=== PATIENT | male | born 1945 | race Caucasian/White ===

== ENCOUNTER → 2018-03-26 12:44 | Outpatient (CLI) | payer MEDICARE, OTHER, SELFPAY ==
--- NOTE | 2018-03-26 12:48 | ECHOD_ITS ---
Reason For Study: Murmur Procedure This was a 2D Doppler, Color Flow transthoracic echocardiogram. Exam performed in department. Left Ventricle Moderate concentric left ventricular hypertrophy. The estimated ejection fraction is 65 %. Normal diastology for age. No regional wall motion abnormalities noted. Right Ventricle Normal size and thickness. Normal systolic function. Atria Normal left atrium. Normal right atrium. Normal atrial septum. Mitral Valve The mitral valve is structurally normal. No prolapse or stenosis seen. Tricuspid Valve Normal tricuspid valve. Trivial tricuspid valve insufficiency. Right ventricular systolic pressure estimated to be 30 mmHg. Aortic Valve Trisinus/trileaflet aortic valve. Moderate focal aortic valve thickening. Mild focal aortic valve calcification. Mild restriction of the aortic valve. Possible fixed left coronary cusp. Mild aortic stenosis. Peak aortic valve gradient 28 mmHg. Mean aortic valve gradient 14 mmHg. Calculated aortic valve area (continuity equation) is 1.2 cm2. Pulmonic Valve Normal pulmonic valve. Great Vessels Normal aortic root. Normal arch. Normal inferior vena cava. Inferior vena cava collapse with sniff. Pericardium/Pleural No pericardial effusion. MMode/2D Measurements & Calculations LVIDd: 4.2 cm IVSd: 1.7 cm LVOT diam: 2.0 cm LVIDs: 2.6 cm LVPWd: 1.2 cm LVOT area: 3.3 cm2 RVDd: 4.0 cm FS: 38.2 % Ao root diam: 3.4 cm LAV(MOD-sp4): 43.5 ml Aortic Valve Planimetry: 1.4 cm2 ACS: 1.6 cm LA dimension: 4.3 cm LA A4 area: 16.4 cm2 RA A4 area: 14.8 cm2 Time Measurements MV dec time: 0.25 sec Doppler Measurements & Calculations MV E max jonatan: 60.8 cm/sec Lat Peak E' Jonatan: 13.2 cm/sec Med Peak E' Jonatan: 10.6 cm/sec MV A max jonatan: 72.1 cm/sec E/E' lat: 4.6 E/E' med: 5.7 MV E/A: 0.84 MV V2 max: 79.9 cm/sec MV P1/2t max jonatan: 79.0 cm/sec Ao V2 max: 263.6 cm/sec MV max P.6 mmHg MV P1/2t: 91.5 msec Ao max P.8 mmHg MV V2 mean: 40.6 cm/sec MV dec slope: 252.7 cm/sec2 Ao V2 mean: 171.2 cm/sec MV mean P.79 mmHg MVA(P1/2t): 2.4 cm2 Ao mean P.9 mmHg MV V2 VTI: 28.9 cm Ao V2 VTI: 51.7 cm MVA(VTI): 2.6 cm2 JIAN(I,D): 1.4 cm2 JIAN(V,D): 1.2 cm2 LV V1 max: 98.0 cm/sec SV(LVOT): 74.9 ml PA V2 max: 175.8 cm/sec LV V1 max P.8 mmHg LV V1 mean P.9 mmHg LV V1 mean: 62.8 cm/sec LV V1 VTI: 22.9 cm Interpretation Summary Moderate concentric left ventricular hypertrophy. The estimated ejection fraction is 65 %. Normal diastology for age. Trivial tricuspid valve insufficiency. Right ventricular systolic pressure estimated to be 30 mmHg. Possible fixed left coronary cusp. Mild aortic stenosis. There is no comparison study available. Ordering Physician: Erick Pittman Referring Physician: Erick Pittman Performed By: Jimmie Fitzgerald RCS
== END ==
PROVIDERS: Family Provider Family Medicine; PCP Family Medicine; Referring Provider Family Medicine; Visit Provider Family Medicine
DX: R01.1 Cardiac murmur, unspecified (principal)
CPT/HCPCS: 93306

== ENCOUNTER → 2022-09-10 | Outpatient (CLI) | payer MEDICARE, OTHER, SELFPAY ==
--- NOTE | 2022-09-10 09:26 | US_ITS ---
STUDY: ABDOMINAL ULTRASOUND REASON FOR EXAM: Male, 77 years old. Abdominal pain, nausea TECHNIQUE: Transabdominal ultrasound was performed with real-time and static van scale imaging. TECHNICAL QUALITY: Limited. Examination limited by bowel gas. COMPARISON: None. FINDINGS: Liver: The liver measures 15.4 cm. There is normal echogenicity of the liver. The bile ducts are within normal limits. There is hepatic color flow. The direction of portal flow is hepatopetal. There is no demonstrated mass lesion, there is a simple 1.3 cm cyst in the right lobe. Portal vein measurement: Gallbladder: Normal distended gallbladder. The gallbladder wall measures 2.2 mm. There is a negative sonographic Castillo''s sign. There is no pericholecystic fluid. There are no gallstones. Common Bile Duct (C.B.D.): The common bile duct measures 4.3 mm. Pancreas: Normal size of the head, body and tail of the pancreas. There is normal echogenicity of the pancreas. There is no demonstrated pancreatic mass or cyst. Spleen: Normal size of the spleen. The spleen measures 11 cm. Right Kidney: Normal size of the right kidney. The right kidney measures 10.5 x 5.1 x 4.8 cm. Normal renal cortex. The right cortex measures 1.7 cm. There is a simple 1.8 cm cyst. There is no right hydronephrosis, there is a nonobstructing 5 mm stone. Left Kidney: Normal size of the left kidney. The left kidney measures 11.3 x 5 x 5.8 cm. Normal renal cortex. The left cortex measures 1.7 cm. There is no demonstrated renal mass or cyst. There is no left hydronephrosis. Aorta: Tapers normally I.V.C.: The IVC is patent. There is no ascites. US/Abdomen Complete IMPRESSION: No suspicious sonographic findings, simple hepatic and right renal cysts, no specific follow-up needed. Nonobstructing right nephrolithiasis Electronically Signed: Juancho Conteh MD at 12:50 EDT ,
== END | disposition home or self-care (01) ==
LOC: US 09:26
PROVIDERS: PCP Nurse Practitioner Family; Referring Provider Internal Medicine Medical Oncology; Visit Provider Internal Medicine Medical Oncology
DX: D72.821 Monocytosis (symptomatic) (principal)
CPT/HCPCS: 76700

== ENCOUNTER 2022-10-21 14:17 | Emergency (ER) | payer MEDICARE, OTHER, SELFPAY ==
[2022-10-21 14:20] VITALS: BP 144/83; PULSE 114; RESP 19; TEMP 36.7; O2SAT 98; BMI 29.4
--- NOTE | 2022-10-21 14:28 | EKG12_ITS ---
Test Reason : CP Blood Pressure : / mmHG Vent. Rate : 118 BPM Atrial Rate : 300 BPM P-R Int : 000 ms QRS Dur : 110 ms QT Int : 328 ms P-R-T Axes : 256 -22 085 degrees QTc Int : 459 ms Atrial flutter with variable A-V block Minimal voltage criteria for LVH, may be normal variant ( R in aVL ) Nonspecific ST and T wave abnormality Abnormal ECG Confirmed by CACHORRO BYRD, JENNIFER ([id number]), senior technical editor LAURA HARLEY ([id number]) on 10/24/2022 9:18:14 AM Referred By: DARON Confirmed By:JENNIFER IVORY MD
--- NOTE | 2022-10-21 14:38 | RAD_ITS ---
EXAM: XR CHEST, 1 VIEW CLINICAL INDICATION: dyspnea TECHNIQUE: Frontal view of the chest. This report was created using [employer]ITT[employer] report generation technology. COMPARISON: None. FINDINGS: LUNGS AND PLEURAL SPACES: Unremarkable. No consolidation or edema. No pneumothorax. No effusion. HEART: Unremarkable. Cardiac silhouette not enlarged. MEDIASTINUM: Central airways and mediastinal contour are unremarkable. BONES/JOINTS: Unremarkable. SOFT TISSUES: Unremarkable. RAD/Chest 1 View (Portable) IMPRESSION: No radiographic evidence of acute cardiopulmonary disease. Electronically Signed: Liam Carter MD at 15:09 EDT ,
--- NOTE | 2022-10-21 14:48 | EX.ED.DYSGE1 ---
HPI History of Present Illness Chief Complaint: Palpitations Detail of Chief Complaint: Sent from nurse practitioner's office for atrial flutter Informant: patient and PCP Onset/Context/Timing Onset: Weeks (Onset 2 to 3 weeks ago) Context: Sudden Onset Timing: Continuous Quality: Palpitations and rapid heartbeat Location: Chest Current Severity: Mild Maximum Severity: Moderate Worsened by: Dyspnea with exertion, only Relieved by: Nothing Associated Symptoms Associated Symptoms: No other symptoms Narrative Narrative: Patient is a 76-year-old male with history of osteoarthritis, hypercholesterolemia, cardiac murmur, hypothyroidism, hyperlipidemia and hypertension who presents from nurse practitioner's office because of rapid heartbeat. Monitor that accompanied patient reveals atrial flutter with variable conduction. Rate is 120. Patient denies history of medical fever. He states he was diagnosed with murmur proxy 5 years ago. He states its been a while since he had an echo. He does not see a game developer. He had his TSH level assessed in August and states it was normal. Patient does report dyspnea with significant exertion. He denies chest discomfort with exertion. He denies orthopnea or PND. He denies history of PE or DVT. He has not noticed any swelling in his legs. He states that nurse practitioner Zenon check stated he had some swelling of his feet. He denies black or maroon-colored stool. He denies fever, chills night sweats. Denies weight gain or weight loss. He denies headache, visual, ocular auditory symptoms. Patient states onset of the palpitations rapid heart rate was approximately 2-3 3 weeks ago. Review of med list indicates he is not on an anticoagulant. Prior similar symptoms: No Recent Illness/Hospitalization: No [facility] Medical History (Updated 10/21/22 @ 16:[address] Jarad Manriquez MD) Enlarged prostate HTN (hypertension) Hypothyroid Sleep disorder Home Medications finasteride 5 mg tablet 5 mg PO DAILY 12/12/21 [History Last Taken Unknown] glucosamine-chondroitin 250 mg-200 mg tablet (Osteo Bi-Flex) 2 tab PO QPC 12/12/21 [History Last Taken Unknown] irbesartan 150 mg tablet 150 mg PO DAILY 12/12/21 [History Last Taken Unknown] levothyroxine 50 mcg capsule 50 mcg PO DAILY 12/12/21 [History Last Taken Unknown] omega-3 fatty acids 1,000 mg capsule 1,000 mg PO DAILY 12/12/21 [History Last Taken Unknown] tumeric 100 mg-domiinc 150 mg-olive 50 mg-oreg 150 mg-caprylate capsule 2 cap PO DAILY 12/12/21 [History Last Taken Unknown] apixaban 5 mg tablet (Eliquis) 5 mg PO BID #60 tabs 10/21/22 [Rx Last Taken Unknown] metoprolol succinate 25 mg tablet,extended release 24 hr 25 mg PO BID #60 tabs 10/21/22 [Rx Last Taken Unknown] Allergy/AdvReac Type Severity Reaction Status Date / Time No Known Allergies Allergy Verified 10/21/22 14:20 Family History Sister Cancer Hypertension Social History (Updated 10/21/22 @ 14:[address] Jarad Manriquez MD) household members: spouse Smoking Status: Former smoker how long ago did patient quit smokin yrs ROS ROS ED Constitutional Constitutional ED: Denies chills, fever(s), subjective, sweats or weight loss Eyes Eyes: Denies blurry vision, change in vision or diplopia ENT ENT ED: Denies ear pain, rhinorrhea or sore throat Cardiovascular Cardiovascular: Reports palpitations and racing heartbeat; Denies chest pain, orthopnea or paroxysmal nocturnal dyspnea Respiratory/Chest Respiratory/Chest: Reports dyspnea on exertion; Denies cough, dyspnea, orthopnea or paroxysmal nocturnal dyspnea Gastrointestinal Gastrointestinal: Denies abdominal pain, diarrhea, melena, nausea or vomiting Genitourinary Genitourinary ED: Denies dysuria, hematuria or urinary frequency Musculoskeletal Musculoskeletal: Denies arthralgias, back pain, myalgias or neck pain Integumentary Denies rash Neurologic Neurologic: Denies headache(s), paresthesias or weakness Psychiatric Psychiatric: Denies anxiety Hematologic/Lymphatic Hematologic/Lymphatic: Reports systems reviewed and no addt'l complaints, except as documented EXAM Physical Exam Const Vital Signs: 10/21/22 14:20 10/21/22 14:57 10/21/22 15:29 Temperature 98.0 F Temperature Source Oral Pulse Rate 114 H 100 Respiratory Rate 19 H 17 Respiratory Effort Normal Non-Labored Blood Pressure 144/83 H Blood Pressure Mean 103 Pulse Ox 98 96 Oxygen Delivery Method Room Air 10/21/22 15:52 Temperature Temperature Source Pulse Rate 128 H Respiratory Rate 14 Respiratory Effort Blood Pressure 107/79 Blood Pressure Mean 88 Pulse Ox 95 Oxygen Delivery Method Room Air Positive well nourished and well developed General Appearance ED: well developed and NAD; Negative for cyanotic, diaphoretic or pallor HEENT Reports moist mucous membranes HEENT Narrative: Head is atraumatic normocephalic. Ears normal. Nares patent. Posterior pharynx is normal. Eyes PERRL and EOMs intact bilaterally General Eye ED: Negative for pale conjunctiva or scleral icterus Neck no lymphadenopathy, supple and no JVD Chest Wall inspection of chest normal and palpation of chest normal Resp normal respiratory effort and clear to auscultation bilaterally Cardio S1 normal heart sound and S2 normal heart sound; Negative for no murmurs Rhythm: abnormal rhythm irregularly irregular (Irregular regular. Monitor reveals a flutter with variable block. Patient also has a holosystolic crescendoing murmur heard throughout the precordium.) GI normal to inspection, nondistended, normoactive bowel sounds, non-tender, non-distended and no masses; Negative for hepatosplenomegaly Back/Spine no CVA tenderness Extremity Extremity Narrative: Mild pitting edema otherwise normal. General Extremety ED: Yes edema General Extremity: edema Neuro oriented x3, CN's II-XII intact bilaterally and no sensory deficits noted Neuro Narrative: Was observed as he walked back to the examination room and is unremarkable. Sensorium / Orientation: alert Psych mental status grossly normal Skin no rashes or lesions noted, no wounds and skin turgor normal General Skin Exam: Negative for jaundice or pallor MDM MDM MDM Narrative Medical decision making narrative: Patient with a flutter with variable block. We will treat rate with metoprolol. He is not a candidate for cardioversion since this started 2 to 3 weeks ago. We will start on anticoagulant since he has no contraindication. Troponin was ordered. Blood work was ordered as well to assess for renal dysfunction since this would affect anticoagulant choice and dosing. CBC was obtained to assess H&H. Will refer patient to game developer since he does not have 1. I was informed at 1528 that patient is still in atrial flutter. Rate is a greater than 100. An additional 5 mg of metoprolol was ordered. Patient had not echocardiogram performed 2017 for new murmur. Interpretation: Interpretation Summary Moderate concentric left ventricular hypertrophy. The estimated ejection fraction is 65 %. Normal diastology for age. Trivial tricuspid valve insufficiency. Right ventricular systolic pressure estimated to be 30 mmHg. Possible fixed left coronary cusp. Mild aortic stenosis. There is no comparison study available. History & Record Review Additional record(s) reviewed:: Prior outpatient record and Prior labs Lab Data Attestation: I reviewed the patient's lab results. Lab results narrative: CBC is unremarkable. Electrolyte panel is unremarkable. TSH is normal. Troponin with 2 to 3 weeks of symptoms is normal. Labs: Laboratory Results - last 24 hr 10/21/22 10/21/22 15:00 15:00 WBC 5.3 RBC 5.40 Hgb 15.4 Hct 47.1 MCV 87.2 MCH 28.5 MCHC 32.7 RDW Std Deviation 42.6 RDW Coeff of Sneha 13.2 Plt Count 208 MPV 11.0 Sodium 136 Potassium 4.1 Chloride 106 Carbon Dioxide 27.0 Anion Gap 3 L BUN 18 Creatinine 1.06 Estim Creat Clear Calc 65.07 Est GFR (MDRD) Af Amer 87 Est GFR (MDRD) Non-Af 72 BUN/Creatinine Ratio 17.0 Glucose 102 Calcium 9.2 Troponin I High Sens 9 TSH 2.04 Radiography Chest X-Ray - ED: 1 View and Read by ED Physician (Review chest x-ray independent reviewed and interpreted by me at 1500 as negative. Cardiac silhouette size normal. Lung parenchyma normal. Perihilar region normal. [place] structures are unremarkable.) Diagnostic Testing: Clinical Impression(s) from Imaging Studies Chest X-Ray 10/21/22 14:38 IMPRESSION: No radiographic evidence of acute cardiopulmonary disease. Electronically Signed: Liam Cartre MD at 15:09 EDT , Rhythm Strip Rhythm Strip: Atrial flutter with variable block rate of approximately 114 Rate: 114 EKG Initial EKG: Attestation: I personally reviewed and interpreted this EKG as follows: Interpretation: Atrial Flutter (Rate is 118 with a variable block. QRS duration 110 ms. QT durations 128 ms. Clare is normal. Possible LVH by voltage criteria. No evidence of ST elevation OR.) Prior: Changed Treatment and Re-Evaluation :: Patient's heart rate after second dose of metoprolol is 94. Case was discussed with Dr. Truong Brush. He states his office will get in contact for outpatient follow-up. Agrees with prescription for metoprolol and Eliquis. Patient received his first dose of Eliquis in the emergency department. Since his renal function is normal and is under the age of 81 dose does not need to be adjusted. Critical Care Time Critical Care Time: Yes Critical care time (excluding procedures): 30-74 minutes (31 minutes), Including time spent: (History, physical, documentation, interpretation of laboratory results), Discussing w/Patient &/or Family/Photograph Tinter and Performing Direct Patient Care at Bedside (Discussion risk benefits of deep procedural sedation using propofol, discussion regarding cardioversion) Discharge Plan Triage Chief Complaint: Palpitations ED Provider: Jarad Manriquez Dx/Rx/DC Orders Clinical Impression: New onset atrial flutter, Hyperlipidemia, Hypothyroidism, Cardiac murmur, Hypercholesterolemia, History of essential hypertension Prescriptions: New Eliquis 5 mg tablet 5 mg PO BID Qty: 60 0RF metoprolol succinate 25 mg tablet extended release 24 hr 25 mg PO BID Qty: 60 0RF No Action levothyroxine 50 mcg capsule 50 mcg PO DAILY finasteride 5 mg tablet 5 mg PO DAILY irbesartan 150 mg tablet 150 mg PO DAILY glucosamine-chondroitin [Osteo Bi-Flex] 250-200 mg tablet 2 tab PO QPC tggocyu-ebgu-tmhjm-oreg-capryl 100 mg-150 mg- 50 mg-150 mg capsule 2 cap PO DAILY omega-3 fatty acids 1,000 mg capsule 1,000 mg PO DAILY Primary Care Provider: Kris Barone NP Referrals: Truong Brush MD [Med Staff - Active Staff] - Kris Barone JEWELRY FACER, JEWELRY FACER-C [Primary Care Provider] - Activity Restrictions/Additional Instructions: Personnel from Dr. Truong Brush's office will contact you for follow-up appointment. Disposition Disposition: Home, Self Care Discharge Date/Time: 10/21/22 16:36
[2022-10-21 15:04] LABS: Hematocrit 47.1 % (40-54); Hemoglobin 15.4 g/dL (13.0-16.5); Mean Corp Hgb Conc 32.7 g/dL (32-36); Mean Corpuscular Hgb 28.5 pg (27.0-32.0); Mean Corpuscular Volume 87.2 fL (80-94); Platelet Count 208 K/mm3 (150-450); RBC Distribution Width CV 13.2 % (11.6-14.6); RBC Distribution Width SD 42.6 fl (35.1-43.9); White Blood Count 5.3 K/mm3 (4.4-11.0)
[2022-10-21] MEDS: Metoprolol Tartrate 5 MG/5 ML Vial IV ×2 (15:10→15:52)
[2022-10-21 15:26] LABS: Anion Gap 3 (5-15); BUN 18 mg/dL (7-18); Calcium,Total 9.2 mg/dL (8.5-10.1); Chloride 106 mmol/L (98-107); Creatinine, Serum 1.06 mg/dL (0.70-1.30); EST Glomerular Filtration Rate 72 mL/min (>60); Est Glom Filt Rate - Afr Amer 87 mL/min (>60); Estimated Creatinine Clearance 65.07 ml/min; Glucose 102 mg/dL (74-106); Potassium 4.1 mmol/L (3.5-5.1); Sodium Level 136 mmol/L (136-145); Thyroid Stim Hormone (TSH) 2.04 uIU/mL (0.358-3.74); Troponin-I HS 9 pg/mL (3.0-78.0)
[2022-10-21 15:29] VITALS: PULSE 100; RESP 17; O2SAT 96
[2022-10-21 15:52] VITALS: BP 107/79; PULSE 128; RESP 14; O2SAT 95
[2022-10-21] MEDS: APIXABAN 5 MG TABLET PO (16:07)
== END 2022-10-21 16:36 | disposition home or self-care (01) ==
PROVIDERS: Emergency Provider Emergency Medicine; PCP Nurse Practitioner Family; Visit Provider Emergency Medicine
DX: I48.92 Unspecified atrial flutter (principal); E03.9 Hypothyroidism, unspecified; R01.1 Cardiac murmur, unspecified; I10 Essential (primary) hypertension; Z87.891 Personal history of nicotine dependence; E78.00 Pure hypercholesterolemia, unspecified
CPT/HCPCS: 71045; 80048; 84443; 84484; 85027; 93005; 96374; 99285; A4216

== ENCOUNTER → 2022-11-22 | Outpatient (CLI) | payer MEDICARE, OTHER, SELFPAY ==
--- NOTE | 2022-11-22 13:40 | ECHOD_ITS ---
Reason For Study: Afib, Aflutter Procedure This was a 2D Doppler, Color Flow transthoracic echocardiogram. Exam performed in department. Left Ventricle Normal LV size. Left ventricular systolic function is normal. The estimated ejection fraction is 60 %. No regional wall motion abnormalities noted. Right Ventricle Normal RV size. Normal systolic function. Atria Normal left atrium. Normal right atrium. Mitral Valve There is mild mitral annular calcification. Tricuspid Valve Normal tricuspid valve. Aortic Valve Trisinus/trileaflet aortic valve. Moderate focal aortic valve calcification. Peak aortic valve gradient 39 mmHg. Mean aortic valve gradient 26 mmHg. Moderate aortic stenosis. Great Vessels Normal aortic root. The pulmonary artery is normal size. Normal inferior vena cava. Pericardium/Pleural No pericardial effusion. MMode/2D Measurements & Calculations LVIDd: 3.9 cm IVSd: 1.2 cm LVOT diam: 2.2 cm LVIDs: 2.0 cm LVPWd: 1.1 cm LVOT area: 4.0 cm2 RVDd: 3.4 cm FS: 48.8 % Ao root diam: 3.7 cm LAV(MOD-bp): 35.4 ml LVAd ap4: 27.5 cm2 ACS: 0.65 cm LAV(MOD-bp) Indexed: 16.5 ml/m2 LVLd ap4: 8.6 cm LAV(MOD-sp2): 39.7 ml EDV(MOD-sp4): 72.3 ml LAV(MOD-sp4): 28.0 ml EDV(sp4-el): 74.3 ml LVAs ap4: 14.0 cm2 LVLs ap4: 6.9 cm ESV(MOD-sp4): 24.0 ml ESV(sp4-el): 24.1 ml EF(MOD-sp4): 66.8 % EF(sp4-el): 67.5 % SV(MOD-sp4): 48.3 ml SV(sp4-el): 50.1 ml Aortic Valve Planimetry: 1.0 cm2 LA A4 area: 12.8 cm2 LA dimension(2D): 4.4 cm RA A4 area: 13.2 cm2 Doppler Measurements & Calculations MV E max heather: 88.4 cm/sec Ao V2 max: 312.0 cm/sec LV V1 max: 73.7 cm/sec Ao max P.3 mmHg LV V1 max P.2 mmHg Ao V2 mean: 247.3 cm/sec LV V1 mean P.3 mmHg Ao mean P.4 mmHg LV V1 mean: 55.7 cm/sec Ao V2 VTI: 66.2 cm LV V1 VTI: 16.4 cm AV (velocity ratio): 0.25 JIAN(I,D): 0.98 cm2 JIAN(V,D): 0.94 cm2 SV(LVOT): 65.0 ml PA V2 max: 118.6 cm/sec TR max heather: 198.0 cm/sec TR max P.7 mmHg ECHO/Echo Complete Interpretation Summary Normal LV size. Left ventricular systolic function is normal. The estimated ejection fraction is 60 %. Moderate focal aortic valve calcification. Mean aortic valve gradient 26 mmHg. Moderate aortic stenosis. Ordering Physician: Truong Brush Referring Physician: Kris Barone Performed By: Soha Vasquez, JAEL, RVT
== END | disposition home or self-care (01) ==
LOC: CVS 13:39
PROVIDERS: PCP Nurse Practitioner Family; Referring Provider Internal Medicine Cardiovascular Disease; Visit Provider Internal Medicine Cardiovascular Disease
DX: I35.0 Nonrheumatic aortic (valve) stenosis (principal)
CPT/HCPCS: 93306

== ENCOUNTER 2022-12-09 10:13 | Day surgery (SDC) | payer MEDICARE, OTHER, SELFPAY ==
[2022-12-03 13:40] LABS: Anion Gap 4 (5-15); BUN 19 mg/dL (7-18); BUN/Creat Ratio 17.8 RATIO (10-20); Calcium,Total 9.4 mg/dL (8.5-10.1); Chloride 105 mmol/L (98-107); Creatinine, Serum 1.07 mg/dL (0.70-1.30); EST Glomerular Filtration Rate 71 mL/min (>60); Est Glom Filt Rate - Afr Amer 86 mL/min (>60); Glucose 97 mg/dL (74-106); Potassium 4.5 mmol/L (3.5-5.1); Sodium Level 136 mmol/L (136-145)
[2022-12-06 07:06] VITALS: BMI 30.2
--- NOTE | 2022-12-09 12:11 | PCM.OP.PRO ---
Procedure Report Date of Procedure: 12/09/22 CONSCIOUS SEDATION REPORT DATE OF SERVICE: December 09, 2022 BRIEF HISTORY OF PRESENT ILLNESS: The patient is a 77-year-old male who presented to [facility] for an elective outpatient cardioversion due to underlying atrial fibrillation. The patient has never previously undergone a cardioversion. He denied any prior anesthetic complications. His last surface echocardiogram demonstrated an ejection fraction of 60%. The patient is systemically anticoagulated on Eliquis. PHYSICAL EXAMINATION: VITAL SIGNS: Reviewed and were acceptable. GENERAL: The patient is an obese male, in no apparent distress, speaking in full sentences. HEENT: Normocephalic, atraumatic. Mucous membranes are moist and pink. Good mouth opening noted. Trachea is midline. Good neck mobility. CHEST: S1, S2 irregularly irregular. No murmurs, rubs or gallops were noted. LUNGS: Clear to auscultation bilaterally without appreciable wheezes, rales or rhonchi. ABDOMEN: Soft, nontender, nondistended. Positive bowel sounds. EXTREMITIES: There is no clubbing, cyanosis or edema. ASA Class: II DESCRIPTION OF PROCEDURE: After confirmation of informed consent, the patient's anesthesia plan was reviewed in detail. Propofol was chosen. Risks and benefits were reviewed and the patient agreed to proceed. At 1159, the patient was given 40 mg of propofol. The patient achieved an appropriate level of sedation and was given a 200 joule synchronized cardioversion by Dr. Brush at the bedside. This was successful in achieving normal sinus rhythm. The patient was monitored until 1210, at which time he reached his baseline mental status and function. The patient tolerated the procedure well. COMPLICATIONS: None ESTIMATED BLOOD LOSS: None RECOMMENDATIONS: Okay to recover in usual fashion. Procedures Pulmonary [id number]: [id number] Con Sedation
--- NOTE | 2022-12-09 12:23 | OP.PCM_ITS ---
Operative Report Date of Procedure: 12/09/22 DC cardioversion. 77-year-old man with a history of atrial flutter. Patient has been anticoa gulated for at least 4 weeks. Patient was brought in and underwent evaluation by the critical care division from Dr. Jackson. Anterior-posterior pads were applied. 40 mg of intravenous propofol was administered and then 200 J of biphasic cardioversion energy were applied with prompt reversal to sinus rhythm. Patient tolerated the procedure well. Patient maintained sinus rhythm. Conclusion: Successful DC cardioversion from atrial flutter to sinus rhythm. Follow-up in the office per protocol.
== END 2022-12-09 13:09 | disposition home or self-care (01) ==
LOC: CLSP 10:13
PROVIDERS: Nurse Practitioner Family; PCP Nurse Practitioner Family; Referring Provider Internal Medicine Cardiovascular Disease; Visit Provider Internal Medicine Cardiovascular Disease
DX: I48.91 Unspecified atrial fibrillation (principal); I48.92 Unspecified atrial flutter; Z79.01 Long term (current) use of anticoagulants; I10 Essential (primary) hypertension; E03.9 Hypothyroidism, unspecified; Z79.899 Other long term (current) drug therapy; Z87.891 Personal history of nicotine dependence; I35.0 Nonrheumatic aortic (valve) stenosis
CPT/HCPCS: 36415; 80048; 92960; 93005; J7040

== ENCOUNTER → 2023-01-20 | Outpatient (CLI) | payer MEDICARE, OTHER, SELFPAY ==
[2023-01-20 15:42] LABS: Absolute Lymphocyte Count 1.37 X10^3/uL (0.83-4.51); Absolute Neutrophil Count 3.6 X10^3/uL (2.0-7.7); Basophil# 0.02 X10^3/uL; Basophil% 0.3 % (0-1); Eosinophil# 0.08 X10^3/uL; Eosinophils% 1.2 % (0-5); Hematocrit 48.3 % (40-54); Hemoglobin 16.1 g/dL (13.0-16.5); Lymphocyte # 1.37 X10^3/ul (0.83-4.51); Lymphocyte % 20.1 % (19-41); Mean Corp Hgb Conc 33.3 g/dL (32-36); Mean Corpuscular Volume 86.9 fL (80-94); Mean Platelet Vol. 11.3 fl (6.2-12.0); Monocyte# 1.76 X10^3/uL; Monocyte% 25.8 % (0-10); NRBC Flagged by Analyzer 0 % (0-5); Neutrophil # 3.57 X10^3/uL (2.7-7.7); Neutrophil % 52.3 % (47-70); POSITIVE DIFFERENTIAL YES; Platelet Count 192 K/mm3 (150-450); RBC Distribution Width CV 13.6 % (11.6-14.6); RBC Distribution Width SD 43.6 fl (35.1-43.9); Red Blood Count 5.56 M/mm3 (4.6-6.2); White Blood Count 6.8 K/mm3 (4.4-11.0)
[2023-01-20 15:57] LABS: Differential Indicated SCAN CRITERIA MET
[2023-01-20 16:21] LABS: ALB/GLOB Ratio 0.8 RATIO (0.9-2.4); AST(SGOT) 15 U/L (15-37); Alanine Aminotransfer ALT/SGPT 20 U/L (16-61); Albumin, Serum 3.6 g/dL (3.2-5.0); Alkaline Phosphatase 87 U/L (45-117); Anion Gap 5 (5-15); BUN 16 mg/dL (7-18); BUN/Creat Ratio 15.7 RATIO (10-20); Calcium,Total 9.1 mg/dL (8.5-10.1); Chloride 105 mmol/L (98-107); Cholesterol 139 mg/dL (200); Creatinine, Serum 1.02 mg/dL (0.70-1.30); EST Glomerular Filtration Rate 75 mL/min (>60); Est Glom Filt Rate - Afr Amer 91 mL/min (>60); Globulin 4.5 g/dL (2.2-4.2); Glucose 95 mg/dL (74-106); High Density Lipoprotein 33 mg/dL; PSA,Total- Diagnostic 2.86 ng/mL (0.0-4.0); Potassium 4.3 mmol/L (3.5-5.1); Protein, Total 8.1 g/dL (6.4-8.2); Sodium Level 134 mmol/L (136-145); Thyroid Stim Hormone (TSH) 2.51 uIU/mL (0.358-3.74); Triglycerides 136 mg/dL; Very Low Density Lipoprotein 27 mg/dL (5-40)
[2023-01-20 16:27] LABS: Anisocytosis RARE; Platelet Estimate ADEQUATE (ADEQ); Red Cell Morphology N CHROM NORMAL (NORM C&C)
== END | disposition home or self-care (01) ==
LOC: PAVLAB 15:05
PROVIDERS: Nurse Practitioner Family; PCP Nurse Practitioner Family; Referring Provider Nurse Practitioner Family; Visit Provider Nurse Practitioner Family
DX: I10 Essential (primary) hypertension (principal); E78.00 Pure hypercholesterolemia, unspecified; E03.9 Hypothyroidism, unspecified; D72.821 Monocytosis (symptomatic); R97.20 Elevated prostate specific antigen [PSA]
CPT/HCPCS: 36415; 80053; 80061; 84153; 84439; 84443; 85025

== ENCOUNTER → 2023-01-21 | Outpatient (CLI) | payer MEDICARE, OTHER, SELFPAY ==
--- NOTE | 2023-01-21 11:24 | CT_ITS ---
STUDY: CT ABDOMEN AND PELVIS WITH CONTRAST REASON FOR EXAM: Male, 77 years old. LLQ PAIN RADIATION DOSAGE (If Supplied By Facility): CTDIvol = ( 19.76 ) mGy, DLP = ( 1584.47 ) mGycm TECHNIQUE: Transaxial images were obtained from the dome of the diaphragm to the symphysis pubis with oral contrast. Oral and amp; IV Gastrografin and amp; 100mL Isovue-300 was administered. Sagittal and coronal images were reconstructed. Individualized dose optimization techniques were used for this CT. COMPARISON: None. FINDINGS: Minimal increased markings at the right lung base suggestive of atelectasis. Coronary artery calcification. There is a 2.1 cm x 1.3 cm cyst in the posterior medial aspect of the dome of the right lobe of the liver. There is also evidence of a cyst measuring 1 cm in the lateral upper aspect of the right lobe. Normal gallbladder and extrahepatic biliary system. Normal spleen. Normal pancreas. Normal bilateral adrenal glands. Small right renal cysts. There is a 4.5 mm nonobstructive calculus in the posterior mid pole portion of the right kidney. Normal left kidney. Diffuse gastric wall thickening along the greater and lesser curvatures even though no oral contrast is seen within it. Clinical correlation is recommended to rule out possible gastritis. Mucosal thickening in the increased markings in the surrounding peritoneal fat of the iliotibial small bowel loop in the right lower quadrant. An inflammatory process should be ruled out. Normal colon. The appendix is visualized and appears normal. There is diffuse atherosclerotic calcification of the abdominal aorta, without a demonstrated aneurysm. Normal inferior vena cava. Normal retroperitoneum. Distention of the urinary bladder. There is enlargement of the prostate gland. The prostate measures 5.2 cm by 5.9 cm. There is evidence of prostatic calcifications. Small left inguinal hernia containing fat. There are diffuse degenerative changes of the visualized lumbar spine. CT/Abdomen/Pelvis WITH Contrast IMPRESSION: Findings suggestive of gastritis with diffuse mural thickening of the lesser and greater curvature of the stomach. Small hepatic cysts. Small right renal cysts and nonobstructive calculus in the right kidney. Findings suggest localized inflammatory change in the distal ileum as described. Electronically Signed: Elieser Harrison MD at 14:21 EDT ,
== END | disposition home or self-care (01) ==
LOC: CT 11:19
PROVIDERS: PCP Nurse Practitioner Family; Referring Provider Nurse Practitioner Family; Visit Provider Nurse Practitioner Family
DX: R10.32 Left lower quadrant pain (principal)
CPT/HCPCS: 74177; Q9967

== ENCOUNTER → 2023-02-12 | Outpatient (CLI) | payer MEDICARE, OTHER, SELFPAY | END | disposition home or self-care (01) | LOC: SL 19:58 | PROVIDERS: PCP Nurse Practitioner Family; Referring Provider Nurse Practitioner Family; Visit Provider Nurse Practitioner Family | DX: G47.10 Hypersomnia, unspecified (principal) | CPT/HCPCS: 95810 ==

== ENCOUNTER → 2023-02-19 | Outpatient (CLI) | payer MEDICARE, OTHER, SELFPAY ==
[2023-02-19 09:21] LABS: Absolute Lymphocyte Count 2.12 X10^3/uL (0.83-4.51); Absolute Neutrophil Count 2.8 X10^3/uL (2.0-7.7); Basophil# 0.05 X10^3/uL; Basophil% 0.7 % (0-1); Eosinophil# 0.25 X10^3/uL; Eosinophils% 3.7 % (0-5); Hematocrit 49.9 % (40-54); Hemoglobin 16.2 g/dL (13.0-16.5); Lymphocyte # 2.12 X10^3/ul (0.83-4.51); Mean Corp Hgb Conc 32.5 g/dL (32-36); Mean Corpuscular Hgb 27.8 pg (27.0-32.0); Mean Corpuscular Volume 85.7 fL (80-94); Mean Platelet Vol. 11.5 fl (6.2-12.0); Monocyte# 1.54 X10^3/uL; Monocyte% 22.5 % (0-10); NRBC Flagged by Analyzer 0 % (0-5); Neutrophil # 2.83 X10^3/uL (2.7-7.7); Neutrophil % 41.5 % (47-70); POSITIVE DIFFERENTIAL YES; Platelet Count 170 K/mm3 (150-450); RBC Distribution Width CV 13.9 % (11.6-14.6); Red Blood Count 5.82 M/mm3 (4.6-6.2); White Blood Count 6.8 K/mm3 (4.4-11.0)
[2023-02-19 09:22] LABS: Differential Indicated SCAN CRITERIA MET
[2023-02-19 09:38] LABS: Anion Gap 4 (5-15); BUN 14 mg/dL (7-18); BUN/Creat Ratio 13.3 RATIO (10-20); Calcium,Total 9.2 mg/dL (8.5-10.1); Chloride 104 mmol/L (98-107); Creatinine, Serum 1.05 mg/dL (0.70-1.30); EST Glomerular Filtration Rate 73 mL/min (>60); Est Glom Filt Rate - Afr Amer 88 mL/min (>60); Glucose 103 mg/dL (74-106); Potassium 3.9 mmol/L (3.5-5.1); Sodium Level 136 mmol/L (136-145)
== END | disposition home or self-care (01) ==
LOC: PAT 06-12 08:47
PROVIDERS: Nurse Practitioner Family; PCP Nurse Practitioner Family; Referring Provider Internal Medicine Cardiovascular Disease; Visit Provider Internal Medicine Cardiovascular Disease
DX: Z01.818 Encounter for other preprocedural examination (principal); I48.91 Unspecified atrial fibrillation; I10 Essential (primary) hypertension
CPT/HCPCS: 36415; 80048; 85025

== ENCOUNTER 2023-09-10 23:51 | Inpatient (IN) | payer MEDICARE, OTHER, SELFPAY ==
[2023-09-10 23:52] VITALS: BP 115/70; PULSE 125; RESP 20; TEMP 36.4; O2SAT 96; BMI 32.8
[2023-09-11] VITALS (30 sets, daily range): BP systolic 86–130; BP diastolic 44–85; PULSE 90–120; RESP 12–23; TEMP 36.6–36.8; O2SAT 92–99; BMI 32.2
--- OUTSIDE RECORDS SUMMARY | 2023-09-11 00:27 | XMS RPT_ITS | CCD ---
Author Name Unknown Address [address] [place] [address] Organization [facility] Care Team Providers Care Ribbon Cleaner Name Role Phone CAMMY LANE APRN, CNP Primary Care Phys [facility] Medications Current Medications Medication Drug Class(es) Dates Sig (Normalized) Sig (Original) irbesartan 75 mg oral tablet (1 source) Angiotensin 2 Receptor Rowdy Start: 01-20-2023 irbesartan 75 mg oral tablet Dose : 75 mg = 1 tab(s), Oral, qDay, # 30 tab(s), 0 Refill(s) Start Date: 01/20/23 Status: Ordered metoprolol tartrate 50 mg oral tablet (1 source) beta-Adrenergic Rowdy Start: 01-20-2023 Metoprolol Succinate ER 50 mg oral TABLET extended release Dose : 50 mg = 1 tab(s), Oral, BID, # 30 tab(s), 0 Refill(s) Start Date: 01/20/23 Status: Ordered Misc Medication (1 source) Start: 10-16-2020 Misc Medication Super Beta Prostate, 0 Refill(s), 113.2 Start Date: 10/16/20 Status: Ordered omeprazole 40 mg delayed release oral capsule (1 source) Proton Pump Inhibitor Start: 01-22-2023 omeprazole 40 mg oral delayed release capsule Dose : 40 mg = 1 cap(s), Oral, qDay, # 14 cap(s), 0 Refill(s), Pharmacy: [id number], Gastritis, 179, cm, 01/20/23 13:47:00 EDT, Height, kg, 01/20/23 13:47:00 EDT, Dosing Weight Start Date: 01/22/23 Status: Ordered Osteo Bi-Flex Advanced oral tablet (1 source) Start: 04-19-2019 take 2 tablets by mouth once daily at mealtime Osteo Bi-Flex Advanced oral tablet See Instructions, 2 tab(s) Oral Daily, 0 Refill(s), Take with food Start Date: 04/19/19 Status: Ordered turmeric extract 500 mg oral capsule (1 source) Start: 02-22-2021 take 2 tablets by mouth once daily turmeric 500 mg oral capsule See Instructions, 2 tabs daily, 0 Refill(s) Start Date: 02/22/21 Status: Ordered Completed/Discontinued Medications Medication Drug Class(es) Dates Sig (Normalized) Sig (Original) apixaban 5 mg oral tablet (1 source) Factor Xa Inhibitor Start: 01-20-2023 Eliquis 5 mg oral tablet Dose : 5 mg = 1 tab(s), Oral, BID, 0 Refill(s), 97.5 Start Date: 01/20/23 Status: Ordered finasteride 5 mg oral tablet (1 source) 5-alpha Reductase Inhibitor Start: 09-19-2022 End: 03-18-2023 Proscar 5 mg oral tablet Dose : 5 mg = 1 tab(s), Oral, qDay, # 90 tab(s), 1 Refill(s), Pharmacy: [facility] ), PSA elevation, 179, cm, 09/19/22 14:01:00 EDT, Height, kg, 09/19/22 14:01:00 EDT, Dosing Weight Start Date: 09/19/22 Stop Date: 03/18/23 Status: Ordered levothyroxine sodium 0.05 mg oral tablet (1 source) l-Thyroxine Start: 09-19-2022 End: 03-18-2023 levothyroxine 50 mcg (0.05 mg) oral tablet Dose : 50 mcg = 1 tab(s), Oral, qDay, # 90 tab(s), 1 Refill(s), Pharmacy: [facility] ([facility] ), 179, cm, 09/19/22 14:01:00 EDT, Height, kg, 09/19/22 14:01:00 EDT, Dosing Weight Start Date: 09/19/22 Stop Date: 03/18/23 Status: Ordered Problems Problem Classification Problem Date Documented Da te Episodic/Chronic Abdominal pain (2 sources) Abdominal pain; Translations: [Left lower quadrant pain] 01-20-2023 Episodic Conduction disorders (1 source) 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 [place] 03-15-2022 influenza, high dose seasonal, preservative-free CAMMY URIBE COMPLAINT SPECIALIST - [employer]PERING KILN TENDER [facility] [place] 11-28-2021 SARS-CoV-2 (COVID-19 ) mRNA-1273 vaccine CAMMY URIBE COMPLAINT SPECIALIST - [employer]PERING [employer] TENDER [facility] [place] 05-07-2021 SARS-CoV-2 (COVID-19 ) mRNA-1273 vaccine CAMMY URIBE COMPLAINT SPECIALIST - [employer]PERING KILN TENDER [facility] [place] Social History Date Type Detail Facility Start: 04-16-2019 Tobacco smoking status Ex-smoker (fi nding) [facility] Sex Assigned At Male [facility] Evaluation + Plan note Note Date & Type Note Facility Evaluation + Plan note Future Appointments Appointment Date:03/27/2023 02:00:00 PM Scheduled Provider:CAMMY URIBE APRN, CNP Location:[facility] Appointment Type:PC OV Follow Up [facility] Hospital course Narrative Note Date & Type Note Facility Hospital course Narrative No data available for this section [facility] Hospital Discharge instructions Note Date & Type Note Facility Hospital Discharge instructions No data available for this section [facility] Progress note Note Date & Type Note Facility Progress note No data available for this section [facility] Summary Purpose Family History No Family History Records Found No data available for this section Advance Directives No Advanced Directives Records Found Additional Source Comments (unrecognized sect ion and content) No Status Records Found INFORMATION SOURCE (unrecogn ized section and content) Patient Care team informatio n (unrecognized section and content) Care Team Personnel Name: CAMMY URIBE APRN - TEMPERING KILN TENDER Position: P4 Advanced Digital Asset Manager Member Role: Primary Care Physician Address: Address: [address] [place] [address]- [place] Care Team Related Persons Name: OSWALDO NELSON FOR RECORDS PERTAINING TO PATIENTS WHO ARE OR HAVE BEEN ENROLLED IN A CHEMICAL DEPENDENCY/SUBSTANCEABUSE PROGRAM, SOME INFORMATION MAY BE OMITTED. This clinical summary was aggregated from multiple sources. Caution should be exercised in using it in the provision of clinical care. This summary normalizes information from multiple sources, and as a consequence, information in this document may materially change the coding, format and clinical context of patient data. In addition, data may be omitted in some cases. CLINICAL DECISIONS SHOULD BE BASED ON THE PRIMARY CLINICAL RECORDS. [facility]. provides no warranty or guarantee of the accuracy or completeness of information in this document.
--- NOTE | 2023-09-11 00:33 | RAD_ITS ---
INDICATION: chest pain EXAMINATION/TECHNIQUE: X-RAY - XR Chest 1 View COMPARISON: No relevant prior comparison study available FINDINGS: LINES/DEVICES: None. LUNGS: No consolidation, edema or effusion. No pneumothorax. MEDIASTINUM AND CARDIOVASCULAR STRUCTURES: Cardiac silhouette not enlarged. Central airways and mediastinal contour are unremarkable. BONES AND SOFT TISSUES: Unremarkable. RAD/Chest 1 View (Portable) IMPRESSION: No radiographic evidence of acute cardiopulmonary disease. Electronically Signed: Sabiha Tovar MD at 1:54 EDT ,
[2023-09-11] MEDS: 0.9% Normal Saline (500mL Bag) 500 ML 999 ML IV (00:42)
[2023-09-11] MEDS: Metoprolol Tartrate 5 MG/5 ML Vial IV (00:42)
[2023-09-11 00:43] LABS: Absolute Lymphocyte Count 1.14 X10^3/uL (0.83-4.51); Absolute Neutrophil Count 12.4 X10^3/uL (2.0-7.7); Basophil# 0.04 X10^3/uL; Basophil% 0.2 % (0-1); Eosinophil# 0.02 X10^3/uL; Eosinophils% 0.1 % (0-5); Hemoglobin 12.9 g/dL (13.0-16.5); Lymphocyte # 1.14 X10^3/ul (0.83-4.51); Lymphocyte % 6.8 % (19-41); Mean Corp Hgb Conc 32.3 g/dL (32-36); Mean Corpuscular Hgb 27.9 pg (27.0-32.0); Mean Corpuscular Volume 86.6 fL (80-94); Mean Platelet Vol. 11.9 fl (6.2-12.0); Monocyte# 3.16 X10^3/uL; Monocyte% 18.7 % (0-10); NRBC Flagged by Analyzer 0 % (0-5); Neutrophil # 12.38 X10^3/uL (2.7-7.7); Neutrophil % 73.4 % (47-70); POSITIVE DIFFERENTIAL YES; Platelet Count 263 K/mm3 (150-450); RBC Distribution Width CV 13.6 % (11.6-14.6); RBC Distribution Width SD 42.5 fl (35.1-43.9); Red Blood Count 4.62 M/mm3 (4.6-6.2); White Blood Count 16.9 K/mm3 (4.4-11.0)
[2023-09-11 00:46] LABS: Differential Indicated SCAN CRITERIA MET
[2023-09-11 00:53] LABS: International Normalized Ratio 1.3; Prothrombin Time (Protime)PT. 16.4 SECONDS (11.7-14.9)
[2023-09-11 00:54] LABS: Partial Thromboplast Time 25.8 Seconds (24.1-36.2)
[2023-09-11 01:10] LABS: Anion Gap 9 (5-15); BUN 55 mg/dL (7-18); BUN/Creat Ratio 47.4 RATIO (10-20); Calcium,Total 8.9 mg/dL (8.5-10.1); Chloride 107 mmol/L (98-107); Creatinine, Serum 1.16 mg/dL (0.70-1.30); EST Glomerular Filtration Rate 65 mL/min (>60); Est Glom Filt Rate - Afr Amer 79 mL/min (>60); Estimated Creatinine Clearance 68.25 ml/min; Glucose 164 mg/dL (74-106); Magnesium 2.1 mg/dL (1.6-2.6); Potassium 4.2 mmol/L (3.5-5.1); Sodium Level 139 mmol/L (136-145); Thyroid Stim Hormone (TSH) 1.91 uIU/mL (0.358-3.74); Troponin-I HS 28 pg/mL (3.0-78.0)
[2023-09-11] MEDS: dilTIAZem 25 MG/5 ML Vial 15 MG IV BOLUS (02:38)
[2023-09-11 02:42] LABS: Troponin-I HS 72 pg/mL (3.0-78.0)
--- NOTE | 2023-09-11 02:45 | CT_ITS ---
INDICATION: GI bleed with elevated trop EXAMINATION: CTA CHEST, ABDOMEN AND PELVIS WITH CONTRAST - TECHNIQUE: A CTA of the chest, abdomen, and pelvis is obtained with sagittal and coronal reconstructed MIP views. Three-dimensional surface rendered sequence of the thoracic and abdominal aorta was obtained. A radiation dose optimization technique was used for this scan. mL of Isovue-370. Oral contrast: None. RADIATION DOSAGE (If Supplied By Facility): CTDIvol = ( 28.12 ) mGy, DLP = ( 3449.86 ) mGycm COMPARISON: CT Abdomen/Pelvis, Jan 21 2023 FINDINGS: CT CHEST: THORACIC AORTA: No atheromatous disease, no aneurysmal changes or dissection. ABDOMINAL AORTA: No aneurysm or dissection. No significant atheromatous disease. The iliac arteries are unremarkable. LUNGS: Dependent atelectasis in the lung bases more prominent on the right. MEDIASTINUM: The thyroid gland is normal. No mediastinal or hilar adenopathy. HEART: Heart is normal size. No pericardial effusion. No CAD. CT ABDOMEN AND PELVIS: LIVER: Several liver cysts are noted the largest measures 2.2 cm. No masses identified. GALLBLADDER: The CBD is normal. Normal gallbladder. SPLEEN: Normal. PANCREAS: No masses or inflammation. ADRENAL GLANDS: Normal. KIDNEYS AND URETERS: The kidneys both enhance appropriately. There are normal size and shape. No hydronephrosis. Nonobstructive stone in the right kidney measures 6 mm. There is an exophytic cyst in the right kidney measures 1.5 cm. STOMACH: Normal. SMALL BOWEL: No abnormal distention of the small bowel. MESENTERY: No mesenteric inflammation. No ascites. COLON: No significant diverticulosis, masses or inflammation. The colon otherwise is normal. There is a large fatty ileocecal valve. APPENDIX: The appendix is visualized and normal. IVC: Normal. RETROPERITONEUM: No retroperitoneal lymphadenopathy. PELVIC STRUCTURES: Normal bladder. SOFT TISSUES ABDOMEN: The anterior abdominal wall is normal. SOFT TISSUE CHEST: The extrathoracic soft tissues are normal. BONES: No fractures or significant degenerative disease. CT/CTA Chst, Abd, Pel W and/or WO IMPRESSION: Normal contrast-enhanced CT of the chest. Nonobstructive stone in the right kidney measures 6 mm. There is an exophytic cyst in the right kidney measures 1.5 cm. Electronically Signed: Sabiha Tovar MD at 3:57 EDT ,
[2023-09-11 02:59] LABS: Differential Comment SCANNED
--- NOTE | 2023-09-11 03:15 | EKG12_ITS ---
Test Reason : CP Blood Pressure : / mmHG Vent. Rate : 124 BPM Atrial Rate : 124 BPM P-R Int : 164 ms QRS Dur : 112 ms QT Int : 350 ms P-R-T Axes : 000 -08 142 degrees QTc Int : 502 ms ATRIAL FLUTTER WITH VARIABLE AV CONDUCTION Left ventricular hypertrophy with repolarization abnormality ( R in aVL , Ayush product ) Abnormal ECG When compared with ECG of 09-DEC-2022 11:52, Premature ventricular complexes are now Present Vent. rate has increased BY 71 BPM Non-specific change in ST segment in Lateral leads T wave inversion now evident in Inferior leads T wave inversion now evident in Lateral leads Confirmed by Carlyle Bermudez ([id number]), market editor NAJMA CASTELLANOS ([id number]) on 09/12/2023 2:08:41 PM Referred By: NEW Confirmed By:Carlyle Bermudez
--- NOTE | 2023-09-11 03:24 | EKG12_ITS ---
Test Reason : RHYTHM CHANGE Blood Pressure : / mmHG Vent. Rate : 104 BPM Atrial Rate : 104 BPM P-R Int : 184 ms QRS Dur : 108 ms QT Int : 340 ms P-R-T Axes : 045 -12 015 degrees QTc Int : 447 ms ATRIAL FLUTTER WITH 3:1 CONDUCTION Minimal voltage criteria for LVH, may be normal variant ( R in aVL ) Inferior infarct , age undetermined Abnormal ECG Confirmed by Carlyle Bermudez ([id number]), art editor NAJMA CASTELLANOS ([id number]) on 09/12/2023 2:09:02 PM Referred By: NEW Confirmed By:Carlyle Bermudez
[2023-09-11] MEDS: Diltiazem 125 MG in Dextrose 5%-Water (100mL Bag) 100 ML CONT INF (03:44)
--- NOTE | 2023-09-11 04:17 | HP.PCM.HOS_ITS ---
[facility] - General General Date of Admission: 09/11/23 Date of Service: 09/11/23 Chief Complaint: Chest Pain and Palpitations. HPI Narrative DEXTER MCGARRY, is a 78 M with a past medical history of essential hypertension, hyperlipidemia, hypothyroidism, obesity; with BMI of 32.8 this admission, obstructive sleep apnea; on CPAP, remote history of tobacco abuse (quit 55 years ago), BPH, OA; with recent steroid injection, history of nonrheumatic aortic valve stenosis and PAF; on apixaban with history of DCCV (2022) followed by Dr. Brush of cardiology who presents to [facility] ER complaining of chest pain and palpitations. Mr. Mcgarry reports his symptoms began at approximately 23:00 hours on the evening of September 10, 2023 with the abrupt-onset of chest that began after he had a dark black stool. Then while he was in the bathroom he suddenly developed chest pain that was pressure-like, substernal and nonradiating. He then became diaphoretic and almost passed out with a sensation his heart was racing with severe palpitations and he finally decided to come in for further evaluation and treatment. He denies associated fever, vomiting, diaphoresis, known history of GI bleeding or similar previous episodes but he does admit to intermittent nausea. In the ER he was diagnosed with a suspected UGIB due to PUD with melanotic stools complicated by Symptomatic Acute Blood Loss Anemia with a highly elevated BUN of 55 mg/dL with a serum creatinine of 1.16 mg/dL present on admission with an EKG positive for paroxysmal atrial flutter; with rapid ventricular response requiring treatment with IV diltiazem plus IV metoprolol compounded by chest pain with an initial troponin of 28 pg/mL rising to 72 pg/mL (technically still in normal range but worrisome to ER physician) with concern for evolving demand ischemia plus he was confirmed to have Hemoccult positive stools in the ER and he was then admitted to the ICU for ongoing care for stay that is expected to be greater than 48 hours. [facility] Medical History Accelerated essential hypertension Atrial flutter Enlarged prostate Essential hypertension HTN (hypertension) Hypersomnolence Hypothyroid Monocytosis Nonrheumatic aortic (valve) stenosis MONIKA (obstructive sleep apnea) Osteoarthritis PSA elevation Sleep disorder Home Medications finasteride 5 mg tablet 5 mg PO DAILY 12/12/21 [History Last Taken Unknown] glucosamine-chondroitin 250 mg-200 mg tablet (Osteo Bi-Flex) 2 tab PO QPC 12/12/21 [History Last Taken 12/09/22] apixaban 5 mg tablet (Eliquis) 5 mg PO BID #120 tabs 11/06/22 [Rx Last Taken 12/09/22] levothyroxine 50 mcg tablet 50 mcg PO DAILY 11/06/22 [History Last Taken 12/09/22] saw palmetto 450 mg capsule 450 mg PO BID 11/06/22 [History Last Taken 12/09/22] irbesartan 75 mg tablet 75 mg PO DAILY #90 tabs 03/14/23 [Rx Last Taken Unknown] metoprolol succinate 50 mg tablet,extended release 24 hr 50 mg PO BID #180 tabs 04/28/23 [Rx Last Taken Unknown] Allergy/AdvReac Type Severity Reaction Status Date / Time No Known Allergies Allergy Verified 09/10/23 23:57 Family History Sister Cancer leukemia Hypertension Heart disease Mother Heart disease Father Myocardial infarction Other Diabetes Surgical History History of cardioversion Social History household members: spouse Smoking Status: Former smoker how long ago did patient quit smokin yrs alcohol intake: never substance use type: does not use caffeine: No ROS ROS Narrative Review of systems: General: Patient denies fevers or chills. HENT: Denies headache, denies stuffy nose, denies sore throat EYES: Denies changes in vision or discharge from eyes. Resp: Denies cough, denies shortness of breath Cardiac: Patient admits to chest pain and palpitations as per HPI. GI: Patient admits to bloody bowel movement with black stool as per HPI. : Denies changes in urination Extremity: Denies swelling Musculoskeletal: Feels somewhat generally weak and unwell Neuro: Denies any numbness/tingling Heme: Patient admits to black stools but he denies a history of peptic ulcer disease or similar previous episodes. Skin: Denies rashes Psychiatric: No complaints voiced related to uncontrolled depression or anxiety Endocrine: No polyuria, polydipsia or polyphagia. The rest of the 14 point ROS was negative except for positives in HPI. Vital Signs Vital Signs Vital Signs: 09/10/23 23:52 09/11/23 02:35 09/11/23 02:46 Temperature 97.6 F L Temperature Source Temporal Pulse Rate 125 H 119 H 104 H Respiratory Rate 20 H 18 17 Blood Pressure 115/70 114/62 107/72 Blood Pressure Mean 85 79 83 Blood Pressure Source Blood Pressure Position Blood Pressure Location Pulse Ox 96 96 96 Oxygen Delivery Method Room Air Room Air Room Air 09/11/23 03:20 09/11/23 03:27 09/11/23 03:44 Temperature 97.9 F 97.9 F Temperature Source Temporal Pulse Rate 109 H 112 H 105 H Respiratory Rate 16 16 20 H Blood Pressure 101/64 110/68 126/66 H Blood Pressure Mean 76 82 86 Blood Pressure Source Monitor Blood Pressure Position Semi-Fowlers Blood Pressure Location Left Arm Pulse Ox 96 96 Oxygen Delivery Method Room Air 09/11/23 03:49 09/11/23 04:14 Temperature Temperature Source Pulse Rate 104 H 109 H Respiratory Rate 21 H 17 Blood Pressure 113/60 115/75 Blood Pressure Mean 77 88 Blood Pressure Source Monitor Blood Pressure Position Semi-Fowlers Blood Pressure Location Left Arm Pulse Ox 96 97 Oxygen Delivery Method Weight Weight: 242 lb 1.081 oz Body Mass Index (BMI) 32.8 Physical Exam Const alert, oriented x3, no apparent distress, average body habitus and healthy appearing General Appearance: cooperative HEENT normocephalic, head/scalp atraumatic, hearing grossly normal bilaterally and moist oral mucous membranes Eyes PERRL and EOMs intact bilaterally Neck no lymphadenopathy and supple Resp normal respiratory effort, no retractions, no use of accessory muscles and clear to auscultation bilaterally Cardio regular rate and regular rhythm Cardio Narrative: Tachycardia noted -but regular. GI normal to inspection, nondistended, normoactive bowel sounds, soft to palpation, non-tender and non-distended Extremity normal to inspection, full ROM and no clubbing, cyanosis or edema Skin Skin Narrative: Patient has no evidence of rash or jaundice at this time. Neuro oriented x3, CN's II-XII intact bilaterally, moves all extremities and no focal motor deficits Sensorium / Orientation: awake, alert, oriented to person, oriented to place and oriented to time Speech: speech normal Motor Exam: strength 5/5 throughout Psych affect normal Results Medical Records Data Attestation: I reviewed the patient's medical records Lab / Micro Data Attestation: I reviewed the patient's lab results. 09/11/23 00:07 09/11/23 00:07 Labs: Laboratory Results - last 24 hr 09/11/23 00:07: WBC 16.9 H, RBC 4.62, Hgb 12.9 L, Hct 40.0, MCV 86.6, MCH 27.9, MCHC 32.3, RDW Std Deviation 42.5, RDW Coeff of Sneha 13.6, Plt Count 263, MPV 11.9, Immature Gran % (Auto) 0.800, Neut % (Auto) 73.4 H, Lymph % (Auto) 6.8 L, [place] % (Auto) 18.7 H, Eos % (Auto) 0.1, Baso % (Auto) 0.2, Absolute Neuts (auto) 12.4 H, Absolute Lymphs (auto) 1.14, Nucleated RBC % 0, Differential Comment SCANNED, Diff Path Review October foll, PT 16.4 H, INR 1.3, APTT 25.8, Sodium 139, Potassium 4.2, Chloride 107, Carbon Dioxide 23.0, Anion Gap 9, BUN 55 H, Creatinine 1.16, Estim Creat Clear Calc 68.25, Est GFR (MDRD) Af Amer 79, Est GFR (MDRD) Non-Af 65, BUN/Creatinine Ratio 47.4 H, Glucose 164 H, Calcium 8.9, Magnesium 2.1, Troponin I High Sens 28, TSH 1.91 09/11/23 02:21: Troponin I High Sens 72 Micro: Microbiology 09/11/23 02:10 Stool Stool Occult Blood (SARAN) - Final Occult Blood Positive Imaging Radiology Impression Chest X-Ray 09/11/23 00:33 IMPRESSION: No radiographic evidence of acute cardiopulmonary disease. Electronically Signed: Sabiha Tovar MD at 1:54 EDT Reading Location ID and State: [facility] / [place] Tel , Service support , Chest/Abdomen/Pelvis CTA 09/11/23 02:45 IMPRESSION: Normal contrast-enhanced CT of the chest. Nonobstructive stone in the right kidney measures 6 mm. There is an exophytic cyst in the right kidney measures 1.5 cm. Electronically Signed: Sabiha Tovar MD at 3:57 EDT Reading Location ID and State: [facility] / [place] Tel , Service support , Assessment & Plan Assessment/Plan (1) GI (gastrointestinal bleed): QUALIFIERS: GI bleed type/associated pathology: melena Qualified Code(s): K92.1 - Melena (2) Adverse reaction to drug: QUALIFIERS: Encounter type: initial encounter Qualified Code(s): T50.905A - Adverse effect of unspecified drugs, medicaments and biological substances, initial encounter (3) Chest pain: QUALIFIERS: Chest pain type: unspecified Qualified Code(s): R07.9 - Chest pain, unspecified (4) Atrial flutter: QUALIFIERS: Atrial flutter type: typical Qualified Code(s): I48.3 - Typical atrial flutter PLAN: Plan 1. Upper GI bleed likely due to underlying peptic ulcer disease with melanotic stools and a highly elevated BUN of 55 mg/dL with a normal creatinine of 1.16 mg/dL present on admission - Admit to ICU. Keep strict n.p.o. and start IV Protonix bolus and then drip per protocol. Check nuclear medicine GI bleeding s can to help pinpoint origin of bleeding. Finally, we will consult machine egg washer on-call to see this patient on rounds in the a.m. for further recommendations regarding EGD this admission with help appreciated in advance. 2. Adverse drug reaction to apixaban in combination with recent steroids causing symptomatic acute blood loss anemia with hemoglobin of 12.9 g/dL present on admission due to #1 - Stop apixaban immediately. Type and screen blood and transfuse for hemoglobin less than 7 g/dL or in case of severe and/or prolonged bleeding. 3. Chest pain with elevating troponin likely due to evolving demand ischemia arising from #1 & #2 - Serialize troponin. Check echocardiogram to evaluate LVEF. Avoid antiplatelet or anticoagulant agents until bleeding outlined #1 has been neutralized. 4. Paroxysmal atrial flutter with rapid ventricular response requiring treatment with IV diltiazem plus IV metoprolol - Continue IV Cardizem drip to keep heart rate of > 100 bpm. Finally, we will consult Dr. Brush of the cardiology service to see this patient on-rounds in the AM for further recommendations to optimize plan for sedation for needed EGD with help appreciated in advance. 5. History of nonrheumatic aortic valve stenosis and PAF; on apixaban with history of DCCV (2022) followed by Dr. Brush of cardiology complicating #1 - #4 - Noted. 6. OA; with recent steroid injection and Leukocytosis of 16.9 present on admission - Noted. 7. Essential hypertension - Hold scheduled antihypertensives until further notice. 8. Hyperlipidemia - Resume statin when patient can safely tolerate oral intake and check Lipid Profile. 9. Hypothyroidism - Continue Synthroid when patient is able to safely resume oral intake and check TSH in light of #4. 10. Obesity; with BMI of 32.8 this admission - Weight loss will be recommended. 11. Obstructive sleep apnea; on CPAP - Resume CPAP as previous. 12. Remote history of tobacco abuse (quit 55 years ago) - Noted. 13. BPH - Continue Finasteride as previous when patient is able to safely tolerate oral intake.. 14. DVT prophylaxis - SCDs only with active GI bleeding. Hold apixaban in light of Hemoccult positive stools. Total time: Approximately 75 minutes. Charges/Coding Visit Charges Inpatient E&M: 97853 Init Hosp L3
--- NOTE | 2023-09-11 04:25 | EDS_ITS ---
HPI History of Present Illness Chief Complaint: Chest Pain Informant: patient and spouse/S.O. Narrative Narrative: Patient is a 78-year-old male past medical history of paroxysmal atrial flutter on Eliquis secondary to this. He states that this evening around 11 PM he was sitting watching TV. He states he developed sudden onset chest discomfort/pressure and felt nauseated secondary to it. He reports that he was able to make it to the bathroom and had a bout of emesis but then also had a bowel movement that was dark in color. He states that his discomfort began to resolve but as he was still feeling palpitations and mild discomfort had concerned this could be cardiac in nature and therefore comes to the hospital for evaluation [facility] Medical History Accelerated essential hypertension Atrial flutter Enlarged prostate Essential hypertension HTN (hypertension) Hypersomnolence Hypothyroid Monocytosis Nonrheumatic aortic (valve) stenosis MONIKA (obstructive sleep apnea) Osteoarthritis PSA elevation Sleep disorder Home Medications finasteride 5 mg tablet 5 mg PO DAILY 12/12/21 [History Last Taken Unknown] glucosamine-chondroitin 250 mg-200 mg tablet (Osteo Bi-Flex) 2 tab PO QPC 12/12/21 [History Last Taken 12/09/22] apixaban 5 mg tablet (Eliquis) 5 mg PO BID #120 tabs 11/06/22 [Rx Last Taken 12/09/22] levothyroxine 50 mcg tablet 50 mcg PO DAILY 11/06/22 [History Last Taken 12/09/22] saw palmetto 450 mg capsule 450 mg PO BID 11/06/22 [History Last Taken 12/09/22] irbesartan 75 mg tablet 75 mg PO DAILY #90 tabs 03/14/23 [Rx Last Taken Unknown] metoprolol succinate 50 mg tablet,extended release 24 hr 50 mg PO BID #180 tabs 04/28/23 [Rx Last Taken Unknown] Allergy/AdvReac Type Severity Reaction Status Date / Time No Known Allergies Allergy Verified 09/10/23 23:57 Family History Sister Cancer leukemia Hypertension Heart disease Mother Heart disease Father Myocardial infarction Other Diabetes Surgical History History of cardioversion Social History household members: spouse Smoking Status: Former smoker how long ago did patient quit smokin yrs alcohol intake: never substance use type: does not use caffeine: No ROS ROS ED Constitutional Constitutional ED: Denies chills or fever(s) Eyes Eyes: Denies blurry vision or change in vision ENT ENT ED: Denies sore throat Cardiovascular Cardiovascular: Reports chest pain and racing heartbeat Respiratory/Chest Respiratory/Chest: Denies cough or dyspnea Gastrointestinal Gastrointestinal: Reports diarrhea, melena, nausea and vomiting; Denies abdominal pain Genitourinary Genitourinary ED: Denies dysuria Musculoskeletal Musculoskeletal: Denies back pain or myalgias Integumentary Denies rash Neurologic Neurologic: Denies headache(s) Hematologic/Lymphatic Hematologic/Lymphatic: Reports easy bleeding and easy bruising EXAM Physical Exam Const Vital Signs: 09/10/23 23:52 09/11/23 02:35 09/11/23 02:46 Temperature 97.6 F L Temperature Source Temporal Pulse Rate 125 H 119 H 104 H Respiratory Rate 20 H 18 17 Blood Pressure 115/70 114/62 107/72 Blood Pressure Mean 85 79 83 Blood Pressure Source Blood Pressure Position Blood Pressure Location Pulse Ox 96 96 96 Oxygen Delivery Method Room Air Room Air Room Air 09/11/23 03:20 09/11/23 03:27 09/11/23 03:44 Temperature 97.9 F 97.9 F Temperature Source Temporal Pulse Rate 109 H 112 H 105 H Respiratory Rate 16 16 20 H Blood Pressure 101/64 110/68 126/66 H Blood Pressure Mean 76 82 86 Blood Pressure Source Monitor Blood Pressure Position Semi-Fowlers Blood Pressure Location Left Arm Pulse Ox 96 96 Oxygen Delivery Method Room Air 09/11/23 03:49 09/11/23 04:14 09/11/23 04:48 Temperature Temperature Source Pulse Rate 104 H 109 H 108 H Respiratory Rate 21 H 17 17 Blood Pressure 113/60 115/75 103/54 L Blood Pressure Mean 77 88 70 Blood Pressure Source Monitor Blood Pressure Position Semi-Fowlers Blood Pressure Location Left Arm Pulse Ox 96 97 96 Oxygen Delivery Method Room Air Positive well nourished and well developed General Appearance ED: well developed; Negative for pallor HEENT HEENT Narrative: Normocephalic atraumatic Eyes PERRL and EOMs intact bilaterally General Eye ED: Negative for pale conjunctiva or scleral icterus Neck supple and no JVD Chest Wall palpation of chest normal Chest Narrative: No bony deformity or crepitance noted Resp normal respiratory effort and clear to auscultation bilaterally Cardio Rate: other Other Details: Tachycardic rate with irregular rhythm Patient has a grade 4 out of 6 holosystolic murmur GI normal to inspection, nondistended, normoactive bowel sounds, non-tender, non- distended and no masses GI Narrative: No voluntary guarding or rigidity or pulsatile mass Auscultation: normoactive bowel sounds Palpation: soft Narrative: Patient has large nonthrombosed nonbleeding hemorrhoids Rectal tone is normal Stool is mucousy brown in color but Hemoccult positive Extremity normal to inspection Extremity Narrative: No asymmetric edema no pitting edema negative Homans' sign bilaterally Neuro oriented x3, CN's II-XII intact bilaterally and no sensory deficits noted Sensorium / Orientation: alert Motor Exam: strength 5/5 throughout Psych mental status grossly normal Skin no rashes or lesions noted and No no wounds General Skin Exam: Negative for jaundice or pallor MDM MDM MDM Narrative Medical decision making narrative: Patient presented to the ER tachycardic ranging from 120s to approximately 150s but otherwise with stable vitals. He reported sudden onset discomfort while watching TV at home as well as a bout of of dark stool. Differential diagnosis is for acute coronary syndrome versus GI bleed versus cardiac dysrhythmia versus lung pathology such as pneumonia pneumothorax or pleural effusion. Basic labs were obtained and showed a white count of 16.9 patient did state he had a recent cortisone injection which could account for the leukocytosis. Electrolytes were stable and he had no signs of acute kidney injury. The patient's initial troponin was normal at 28 but the 2-hour delta increased to 72 concerning for acute coronary syndrome. However patient did not have any pain associated with this. Secondary to the Hemoccult positive stool reported GI bleeding and his elevated troponin a CTA of the chest abdomen pelvis was obtained. This revealed no obvious findings such as dissection PE or colitis. The patient was given 5 mg of IV Lopressor which did not change his heart rate as well as IV fluid and therefore he was given a 15 mg bolus of Cardizem. This did help reduce his heart rate approximately 100s therefore Cardizem drip was started. At this time with the patient having an elevated troponin and multiple cardiac risk factors do not feel is safe for him to return home and therefore medicine was contacted and they do agree to accept the patient at this time for further care History & Record Review Discussion w/independent historian: Patient and Significant other Lab Data Attestation: I reviewed the patient's lab results. Labs: Laboratory Results - last 24 hr 09/11/23 09/11/23 00:07 02:21 WBC 16.9 H RBC 4.62 Hgb 12.9 L Hct 40.0 MCV 86.6 MCH 27.9 MCHC 32.3 RDW Std Deviation 42.5 RDW Coeff of Sneha 13.6 Plt Count 263 MPV 11.9 Immature Gran % (Auto) 0.800 Neut % (Auto) 73.4 H Lymph % (Auto) 6.8 L Colbert % (Auto) 18.7 H Eos % (Auto) 0.1 Baso % (Auto) 0.2 Absolute Neuts (auto) 12.4 H Absolute Lymphs (auto) 1.14 Nucleated RBC % 0 Differential Comment SCANNED Diff Path Review October foll PT 16.4 H INR 1.3 APTT 25.8 Sodium 139 Potassium 4.2 Chloride 107 Carbon Dioxide 23.0 Anion Gap 9 BUN 55 H Creatinine 1.16 Estim Creat Clear Calc 68.25 Est GFR (MDRD) Af Amer 79 Est GFR (MDRD) Non-Af 65 BUN/Creatinine Ratio 47.4 H Glucose 164 H Calcium 8.9 Magnesium 2.1 Troponin I High Sens 28 72 TSH 1.91 Radiography Diagnostic Testing: Clinical Impression(s) from Imaging Studies Chest X-Ray 09/11/23 00:33 IMPRESSION: No radiographic evidence of acute cardiopulmonary disease. Electronically Signed: Sabiha Tovar MD at 1:54 EDT , Chest/Abdomen/Pelvis CTA 09/11/23 02:45 IMPRESSION: Normal contrast-enhanced CT of the chest. Nonobstructive stone in the right kidney measures 6 mm. There is an exophytic cyst in the right kidney measures 1.5 cm. Electronically Signed: Sabiha Tovar MD at 3:57 EDT , Chest x-ray as interpreted by the emergency medicine physician reveals no acute infiltrate pneumothorax pleural effusion or widening of the mediastinum Management Discussion w/another healthcare provider: Hospitalist Discharge Plan Dx/Rx/DC Orders Clinical Impression: GI (gastrointestinal bleed), Atrial flutter, Current use of chcf anticoagulation, Elevated troponin Disposition Disposition: Acute Care Hospital [facility]
--- NOTE | 2023-09-11 04:58 | ED.RN ---
ATTEMPTED TO CONTACT [facility] REGARD[facility]. GOT DISCONNECTED MULTIPLE TIMES. TRIED DIFFERENT EXTENSIONS, WITH SAME RESULT. WILL CALL BACK AGAIN TO SEE IF PHONE ISSUES RESOLVED.
--- NOTE | 2023-09-11 05:21 | NM_ITS ---
CLINICAL: 78-year-old male with history of Hemoccult positive stools. LABELED BLOOD POOL GASTROINTESTINAL BLEEDING STUDY COMPARISON: None available FINDINGS: Following the intravenous administration of 25.9 mCi of 99m Tc Ultratag labeled RBCs, image acquisitions of the anterior-abdomen and pelvis for a total of 60 minutes reveal: 1. Review of static and cine 1 minute projections of the anterior abdomen and pelvis demonstrate no evidence of abnormal increased tracer uptake indicative of acute gastrointestinal hemorrhage. 2. Physiologic tracer uptake is noted in the hepatic, splenic and major vascular blood pool. There is visualization of the bilateral renal units and urinary bladder. NM/GI Bleed Scan IMPRESSION: 1. NEGATIVE 99m Tc ULTRATAG LABELED BLOOD POOL GASTROINTESTINAL BLEEDING EXAMINATION. 2. There is no definitive scintigraphic evidence of acute gastrointestinal hemorrhage on the present evaluation. The Electronically Signed: Kris Bethea DO at 12:01 EDT ,
--- OUTSIDE RECORDS SUMMARY | 2023-09-11 05:44 | XMS RPT_ITS | CCD ---
Author Name Unknown Address [address] [place] [address] Organization [facility] Care Team Providers Care Recording Studio Set Up Worker Name Role Phone CAMMY LANE APRN, CNP Primary Care Phys [facility] Medications Current Medications Medication Drug Class(es) Dates [...] qDay, # 14 cap(s), 0 Refill(s), Pharmacy: [id number], Gastritis, 179, cm, 01/20/23 13:47:00 [...] tab(s), 1 Refill(s), Pharmacy: [facility] ([facility] ), PSA elevation, 179, cm, 09/19/22 14:01:00 EDT, Height, kg, 09/19/22 14:01:00 EDT, Dosing Weight Start Date: 09/19/22 Stop Date: 03/18/23 Status: Ordered levothyroxine sodium 0.05 mg oral tablet (1 source) l-Thyroxine Start: 09-19-2022 End: 03-18-2023 levothyroxine 50 mcg (0.05 mg) oral tablet Dose : 50 mcg = 1 tab(s), Oral, qDay, # 90 tab(s), 1 Refill(s), Pharmacy: [facility] ([facility] ), 179, cm, 09/19/22 14:01:00 [...] 03-20-2023 End: 03-24-2023 Outreach Lab CAMMY URIBE MARINE PROPULSION TECHNICIAN - FIELD SPEC [facility] Immunizations Immunization Date Immunization Notes Care Provider Fa cility 07-08-2022 SARS-CoV-2 (CV19)mRNA-1273 bivalent vac CAMMY URIBE MARINE PROPULSION TECHNICIAN - FIELD SPEC [facility] [place] 03-15-2022 influenza, high dose seasonal, preservative-free CAMMY URIBE MARINE PROPULSION TECHNICIAN - FIELD SPEC [facility] [place] 11-28-2021 SARS-CoV-2 (COVID-19 ) mRNA-1273 vaccine CAMMY URIBE MARINE PROPULSION TECHNICIAN - FIELD SPEC [facility] [place] 05-07-2021 SARS-CoV-2 (COVID-19 ) mRNA-1273 vaccine CAMMY URIBE MARINE PROPULSION TECHNICIAN - FIELD SPEC [facility] [place] Social History Date Type Detail Facility Start: 04-16-2019 Tobacco smoking status Ex-smoker (fi nding) [facility] Sex Assigned At Male [facility] Evaluation + Plan note Note Date & Type Note Facility Evaluation + Plan note Future Appointments Appointment Date:03/27/2023 02:00:00 PM Scheduled Provider:CAMMY URIBE APRN, CNP Location:[facility] Appointment Type:PC OV Follow Up [facility] Hospital course Narrative Note Date & Type Note Facility Hospital course Narrative No data available for this section [facility] Hospital Discharge instructions Note Date & Type Note Facility Hospital Discharge instructions No data available for this section [facility] Progress note Note Date & Type Note Facility Progress note No data available for this section [facility] Summary Purpose Family History No Family History Records Found No data available for this section Advance Directives No Advanced Directives Records Found Additional Source Comments (unrecognized sect ion and content) No Status Records Found INFORMATION SOURCE (unrecogn ized section and content) Patient Care team informatio n (unrecognized section and content) Care Team Personnel Name: CAMMY URIBE APRN - FIELD SPEC Position: P4 Advanced Protection Engineer Member Role: Primary Care Physician Address: Address: [address] [place] [address]- [place] Care Team Related Persons Name: OSWALDO [...] BE BASED ON THE PRIMARY CLINICAL RECORDS. [facility] [employer] [facility]. provides no warranty or guarantee of the accuracy or completeness of information in this document.
--- NOTE | 2023-09-11 06:05 | ED.RN ---
REPORT CALLED TO VALERIE BARRIOS.
--- NOTE | 2023-09-11 06:27 | ECHOCS_ITS ---
Version 2 Reason For Study: Afib/Flutter Procedure This was a 2D Doppler, Color Flow transthoracic echocardiogram. The study was technically difficult. Contrast injection was performed. Exam performed portable in ICU/CCU. Left Ventricle Normal LV size. Left ventricular systolic function is normal. The estimated ejection fraction is 65 %. No regional wall motion abnormalities noted. Right Ventricle Normal RV size. Normal systolic function. Atria Normal left atrium. Normal right atrium. Mitral Valve Normal mitral valve. There is mild mitral annular calcification. Tricuspid Valve Normal tricuspid valve. Aortic Valve Trisinus/trileaflet aortic valve. Moderate focal aortic valve calcification. Peak aortic valve gradient 50 mmHg. Mean aortic valve gradient 26 mmHg. Moderate aortic stenosis. Pulmonic Valve Normal pulmonic valve. Great Vessels Normal aortic root. The pulmonary artery is normal size. Inferior vena cava collapse with respiration. Pericardium/Pleural No pericardial effusion. Medication Diluted definity 2ml given slow IV push to enhance endocardial definition. MMode/2D Measurements & Calculations LVIDd: 4.6 cm IVSd: 1.2 cm LVOT diam: 2.0 cm LVIDs: 2.8 cm LVPWd: 1.1 cm RVDd: 3.0 cm FS: 38.2 % LVOT area: 3.1 cm2 Ao root diam: 3.6 cm LAV(MOD-bp): 68.7 ml LA A4 area: 22.6 cm2 LA dimension: 4.8 cm LAV(MOD-bp) Indexed: 30.0 ml/m2 LAV(MOD-sp2): 66.5 ml LAV(MOD-sp4): 71.6 ml Doppler Measurements & Calculations MV E max heather: 75.9 cm/sec MV V2 max: 143.3 cm/sec Ao V2 max: 352.6 cm/sec MV max P.5 mmHg Ao max P.8 mmHg MV V2 mean: 73.7 cm/sec Ao V2 mean: 235.0 cm/sec MV mean P.7 mmHg Ao mean P.3 mmHg MV V2 VTI: 22.3 cm Ao V2 VTI: 56.0 cm MVA(VTI): 1.6 cm2 AV (velocity ratio): 0.21 JIAN(I,D): 0.65 cm2 JIAN(V,D): 0.60 cm2 LV V1 max: 67.6 cm/sec SV(LVOT): 36.4 ml PA V2 max: 114.4 cm/sec LV V1 max P.8 mmHg LV V1 mean P.1 mmHg LV V1 mean: 48.9 cm/sec LV V1 VTI: 11.7 cm ECHO/Echo Complete W/ Contrast Interpretation Summary Normal LV size. Left ventricular systolic function is normal. The estimated ejection fraction is 65 %. Moderate focal aortic valve calcification. Mean aortic valve gradient 26 mmHg. Moderate aortic stenosis. Contrast injection was performed. Ordering Physician: Obinna Bueno Performed By: Jimmie Fitzgerald RCS
[2023-09-11] MEDS: Pantoprazole Sodium 80 MG in 0.9% Normal Saline (50mL Bag) 15 ML 420 MG IV BOLUS (06:46)
[2023-09-11] MEDS: 0.9% Normal Saline (1000mL) 1,000 ML 70 ML IV ×2 (06:46→21:04)
[2023-09-11] MEDS: Pantoprazole Sodium 80 MG in 0.9% Normal Saline (100mL Bag) 80 ML 10 MG CONT INF ×2 (06:52→15:11)
[2023-09-11 07:11] LABS: Troponin-I HS 62 pg/mL (3.0-78.0)
--- NOTE | 2023-09-11 07:58 | PCM.CONS.C ---
Assessment & Plan Assessment/Plan (1) Atrial flutter: QUALIFIERS: Atrial flutter type: typical Qualified Code(s): I48.3 - Typical atrial flutter PLAN: He presents with atrial flutter with uncontrolled ventricular response rate. This appears to be fairly recent onset. Currently he has been controlled with intravenous diltiazem and I will switch him to oral metoprolol. Due to his recent /ongoing GI bleed I would recommend that we hold off the Eliquis at this time. I would not recommend DC cardioversion or ablation until his GI issues have been sorted out. At this time we will proceed with rate control for symptom management. There is no contraindication at this particular time for him to undergo GI evaluation with either an endoscopy or colonoscopy for his source of the GI bleed. (2) Nonrheumatic aortic (valve) stenosis: PLAN: He does have evidence of at least moderate aortic stenosis. His last echocardiogram was over a year ago. I would recommend that we repeat the above very characterization of his aortic valve gradients. This could be contributing to some of his atrial flutter. (3) Essential hypertension: PLAN: His blood pressure appears to be under decent control at this time and the plan to be for him to continue with his beta-diann as well as the irbesartan. I will be hesitant to drop his blood pressure too much because of his aortic stenosis. (4) Hyperlipidemia: QUALIFIERS: Hyperlipidemia type: mixed hyperlipidemia Qualified Code(s): E78.2 - Mixed hyperlipidemia PLAN: He will continue with secondary risk factor modification with regard to his hyperlipidemia. Thank you for allowing me to participate in the care of your patient. Please don't hesitate to call if any issues arise. (5) GI (gastrointestinal bleed): QUALIFIERS: GI bleed type/associated pathology: melena Qualified Code(s): K92.1 - Melena PLAN: He appears to have a recent onset GI bleed. Will defer to the hospitalist and the GI service. However would recommend from the cardiac standpoint that his Eliquis be discontinued. I would not recommend aspirin either. Thank you for allowing me to participate in the care of your patient. Please don't hesitate to call if any issues arise. HPI Consult Data Date of Consult: 09/11/23 HPI Narrative HPI Narrative: DEXTER NELSON, is a 78 M who presents to the emergency room today with complaints of palpitations as well as passing black tarry stools. He is a gentleman with a history of known atrial flutter who had undergone failed DC cardioversion in November 2022 as well as moderate aortic stenosis from his last echocardiogram in October 2022 showing an ejection fraction of 60%, a peak gradient of 39 mmHg and a mean gradient of 26 mmHg across his aortic valve area. He was being considered for atrial flutter ablation because he had failed a cardioversion previously. He says that he was doing well until yesterday when he woke up in the evening just before bed he went to the bathroom and noticed that he had black stools. He has been on his beta-diann as well as his Eliquis. Then he noticed that his heart rate was going fast and he decided to present to the emergency room. An EKG done demonstrated atrial flutter with a rapid ventricular response rate he was started on intravenous diltiazem and admitted to the telemetry unit. He denies any abdominal discomfort or chest discomfort. He denies bilateral lower extremity edema. He denies claudication. He acknowledges shortness of breath at rest that resolves with activity such extreme activity and states orthopnea. He denies shortness of breath with activity or PND. He denies chronic cough. He denies significant, sudden weight gain. He acknowledges fatigue and lightheadedness when his blood pressure is low. 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 He denies dizziness, near-syncope, or syncope. He denies fever with chills. He denies myalgia. His exercise level has remained stable. He currently is in atrial flutter with a decent ventricular response rate on IV diltiazem 5 mg as well as pantoprazole. He is asymptomatic. [facility] Medical History Accelerated essential hypertension Atrial flutter Enlarged prostate Essential hypertension HTN (hypertension) Hypersomnolence Hypothyroid Monocytosis Nonrheumatic aortic (valve) stenosis MONIKA (obstructive sleep apnea) Osteoarthritis PSA elevation Sleep disorder Home Medications finasteride 5 mg tablet 5 mg PO DAILY 12/12/21 [History Last Taken Unknown] glucosamine-chondroitin 250 mg-200 mg tablet (Osteo Bi-Flex) 2 tab PO QPC 12/12/21 [History Last Taken 12/09/22] apixaban 5 mg tablet (Eliquis) 5 mg PO BID #120 tabs 11/06/22 [Rx Last Taken 12/09/22] levothyroxine 50 mcg tablet 50 mcg PO DAILY 11/06/22 [History Last Taken 12/09/22] saw palmetto 450 mg capsule 450 mg PO BID 11/06/22 [History Last Taken 12/09/22] irbesartan 75 mg tablet 75 mg PO DAILY #90 tabs 03/14/23 [Rx Last Taken Unknown] metoprolol succinate 50 mg tablet,extended release 24 hr 50 mg PO BID #180 tabs 04/28/23 [Rx Last Taken Unknown] Allergy/AdvReac Type Severity Reaction Status Date / Time No Known Allergies Allergy Verified 09/10/23 23:57 Family History Sister Cancer leukemia Hypertension Heart disease Mother Heart disease Father Myocardial infarction Other Diabetes Surgical History History of cardioversion Social History household members: spouse Smoking Status: Former smoker how long ago did patient quit smokin yrs alcohol intake: never substance use type: does not use caffeine: No ROS Constitutional Constitutional: Denies fever(s) or weight loss Eyes Eyes: Reports systems reviewed and no addt'l complaints, except as documented ENT HEENT: Reports systems reviewed and no addt'l complaints, except as documented Cardiovascular Cardiovascular: Reports palpitations; Denies chest pain at rest, chest pain with activity, dyspnea at rest, dyspnea on exertion, edema or paroxysmal nocturnal dyspnea Respiratory/Chest Respiratory/Chest: Denies dyspnea on exertion, productive cough, shortness of breath at rest or shortness of breath with exertion Gastrointestinal Gastrointestinal: Reports melena; Denies change in bowel habits, nausea, vomiting or weight changes Genitourinary Genitourinary: Denies difficulty urinating Musculoskeletal Musculoskeletal: Denies joint stiffness or muscle weakness Integumentary Integumentary: Denies lesions Neurologic Neurologic: Denies dizziness or syncope Psychiatric Psychiatric: Denies anxiety Endocrine Endocrinology: Denies excessive sweating or fatigue Hematologic/Lymphatic Hematologic/Lymphatic: Denies anemia Allergic/Immunologic Allergic/Immunologic: Denies seasonal rhinorrhea Physical Exam Const alert, oriented x3 and no apparent distress General Appearance: cooperative HEENT hearing grossly normal bilaterally Head and Scalp: atraumatic Eyes EOMs intact bilaterally Neck General: normal visual inspection Chest inspection of chest normal and palpation of chest normal Resp normal respiratory effort Auscultation: clear to auscultation bilaterally Cardio S1 normal heart sound and S2 normal heart sound Jugular Venous Distention: JVD Rhythm: abnormal rhythm irregularly irregular Heart Sounds: S1 normal, S2 normal and murmur systolic II/ harsh early left sternal border to carotid arteries GI normal to inspection, nondistended, normoactive bowel sounds Extremity normal capillary refill and no pedal edema Peripheral Pulses: Yes pulses 2+ throughout and femoral pulses present Skin no rashes or lesions noted Neuro oriented x3 and CN's II-XII intact bilaterally Psych Appearance: grossly normal and appropriate Risk Stratification Risk Stratification Applicable: No Objective Data Vital Signs: Vital Signs Temp Pulse Resp BP Pulse Ox O2 Del Method 97.9 F 102 H 15 113/71 96 Room Air 09/11/23 03:44 09/11/23 07:15 09/11/23 07:15 09/11/23 07:15 09/11/23 07:15 09/11/23 07:15 Oxygen Delivery Method Room Air Weight: 237 lb 14.06 oz Body Mass Index (BMI) 32.2 Intake & Output: Intake and Output for Last 24 Hours 09/09/23 09/10/23 09/11/23 23:59 23:59 23:59 Intake Total 552.58 / 552.58 Balance 552.58 / 552.58 Lab / Micro Data 09/11/23 00:07 09/11/23 00:07 Labs: Laboratory Results - last 24 hr 09/11/23 00:07: WBC 16.9 H, RBC 4.62, Hgb 12.9 L, Hct 40.0, MCV 86.6, MCH 27.9, MCHC 32.3, RDW Std Deviation 42.5, RDW Coeff of Sneha 13.6, Plt Count 263, MPV 11.9, Immature Gran % (Auto) 0.800, Neut % (Auto) 73.4 H, Lymph % (Auto) 6.8 L, [place] % (Auto) 18.7 H, Eos % (Auto) 0.1, Baso % (Auto) 0.2, Absolute Neuts (auto) 12.4 H, Absolute Lymphs (auto) 1.14, Nucleated RBC % 0, Differential Comment SCANNED, Diff Path Review October, PT 16.4 H, INR 1.3, APTT 25.8, Sodium 139, Potassium 4.2, Chloride 107, Carbon Dioxide 23.0, Anion Gap 9, BUN 55 H, Creatinine 1.16, Estim Creat Clear Calc 68.25, Est GFR (MDRD) Af Amer 79, Est GFR (MDRD) Non-Af 65, BUN/Creatinine Ratio 47.4 H, Glucose 164 H, Calcium 8.9, Magnesium 2.1, Troponin I High Sens 28, TSH 1.91 09/11/23 02:21: Troponin I High Sens 72 09/11/23 06:30: Troponin I High Sens 62 Micro: Microbiology 09/11/23 02:10 Stool Stool Occult Blood (SARAN) - Final Occult Blood Positive Cardiology Labs/Tests 09/11/23 00:07: WBC 16.9 H, RBC 4.62, Hgb 12.9 L, Hct 40.0, MCV 86.6, MCH 27.9, MCHC 32.3, Plt Count 263, MPV 11.9, Immature Gran % (Auto) 0.800, Neut % (Auto) 73.4 H, Lymph % (Auto) 6.8 L, [place] % (Auto) 18.7 H, Eos % (Auto) 0.1, Baso % (Auto) 0.2, Absolute Neuts (auto) 12.4 H, Nucleated RBC % 0, PT 16.4 H, INR 1.3, APTT 25.8, Sodium 139, Potassium 4.2, Chloride 107, Carbon Dioxide 23.0, Anion Gap 9, BUN 55 H, Creatinine 1.16, Est GFR (MDRD) Af Amer 79, Est GFR (MDRD) Non-Af 65, BUN/Creatinine Ratio 47.4 H, Glucose 164 H, Calcium 8.9, Magnesium 2.1 Rhythm: EKG: ECHO: Stress Test: Cardiac Cath: PCI: CT Surgery: Holter monitor: EPS: PPM: CXR: Chest CT Scan: Radiography Diagnostic Testing: Radiology Impression Chest X-Ray 09/11/23 00:33 IMPRESSION: No radiographic evidence of acute cardiopulmonary disease. Electronically Signed: Sabiha Tovar MD at 1:54 EDT , Chest/Abdomen/Pelvis CTA 09/11/23 02:45 IMPRESSION: Normal contrast-enhanced CT of the chest. Nonobstructive stone in the right kidney measures 6 mm. There is an exophytic cyst in the right kidney measures 1.5 cm. Electronically Signed: Sabiha Tovar MD at 3:57 EDT ,
--- OUTSIDE RECORDS SUMMARY | 2023-09-11 09:18 | XMS RPT_ITS | CCD ---
Author Name Unknown Address [address] [place] [address] Organization [facility] Care Team Providers Care Hvac Service Technician Name Role Phone CAMMY LANE APRN, CNP Primary Care Phys [facility] Medications Current Medications Medication Drug Class(es) Dates [...] qDay, # 14 cap(s), 0 Refill(s), Pharmacy: [id number], Gastritis, 179, cm, 01/20/23 [...] tab(s), 1 Refill(s), Pharmacy: [facility] ([facility] ), PSA elevation, 179, cm, 09/19/22 14:01:00 EDT, Height, kg, 09/19/22 14:01:00 EDT, Dosing Weight Start Date: 09/19/22 Stop Date: 03/18/23 Status: Ordered levothyroxine sodium 0.05 mg oral tablet (1 source) l-Thyroxine Start: 09-19-2022 End: 03-18-2023 levothyroxine 50 mcg (0.05 mg) oral tablet Dose : 50 mcg = 1 tab(s), Oral, qDay, # 90 tab(s), 1 Refill(s), Pharmacy: [facility] ([facility] ), 179, cm, 09/19/22 14:01:00 [...] 03-20-2023 End: 03-24-2023 Outreach Lab CAMMY URIBE EAP COUNSELOR - LIBRARY PARAPROFESSIONAL [facility] Immunizations Immunization Date Immunization Notes Care Provider Fa cility 07-08-2022 SARS-CoV-2 (CV19)mRNA-1273 bivalent vac CAMMY URIBE EAP COUNSELOR - LIBRARY PARAPROFESSIONAL [facility] [place] 03-15-2022 influenza, high dose seasonal, preservative-free CAMMY URIBE EAP COUNSELOR - LIBRARY PARAPROFESSIONAL [facility] [place] 11-28-2021 SARS-CoV-2 (COVID-19 ) mRNA-1273 vaccine CAMMY URIBE EAP COUNSELOR - LIBRARY PARAPROFESSIONAL [facility] [place] 05-07-2021 SARS-CoV-2 (COVID-19 ) mRNA-1273 vaccine CAMMY URIBE EAP COUNSELOR - LIBRARY PARAPROFESSIONAL [facility] [place] Social History Date Type Detail Facility Start: 04-16-2019 Tobacco smoking status Ex-smoker (fi nding) [facility] Sex Assigned At Male [facility] Evaluation + Plan note Note Date & Type Note Facility Evaluation + Plan note Future Appointments Appointment Date:03/27/2023 02:00:00 PM Scheduled Provider:CAMMY URIBE APRN, CNP Location:[facility] Appointment Type:PC OV Follow Up [facility] Hospital course Narrative Note Date & Type Note Facility Hospital course Narrative No data available for this section [facility] Hospital Discharge instructions Note Date & Type Note Facility Hospital Discharge instructions No data available for this section [facility] Progress note Note Date & Type Note Facility Progress note No data available for this section [facility] Summary Purpose Family History No Family History Records Found No data available for this section Advance Directives No Advanced Directives Records Found Additional Source Comments (unrecognized sect ion and content) No Status Records Found INFORMATION SOURCE (unrecogn ized section and content) Patient Care team informatio n (unrecognized section and content) Care Team Personnel Name: CAMMY URIBE APRN - LIBRARY PARAPROFESSIONAL Position: P4 Advanced Lawn Care Technician Member Role: Primary Care Physician Address: Address: [address] [facility] [place] [address]- [place] Care Team Related Persons Name: OSWALDO [...] BE BASED ON THE PRIMARY CLINICAL RECORDS. [facility] [employer] [facility]. provides no warranty or guarantee of the accuracy or completeness of information in this document.
[2023-09-11] MEDS: Metoprolol Tartrate 50 MG Tablet PO ×2 (09:28→22:58)
--- NOTE | 2023-09-11 09:41 | CASEMGMT ---
SOPHIE HER Assessment Face to Face with patient for initial transition planning/care coordination assessment. SOPHIE HER introduced self and role at [facility], pt voices understanding. Pt is A&Ox4 and is resting comfortably in bed and is calm. Care providers, pharmacy, and demographics verified. Admitting dx: ROSEANNA PATEL Strata:1 PCP: Kris Barone ([employer] SALES REPRESENTATIVE) Specialists: Yary Brush Preferred Pharmacy: [facility] Insurance: [facility] A/B, AARP Prescription Benefit:Yes LNOK: - Mia Mcgarry Living Arrangements: Pt lives with his in a single story home with a BM with HR with 2 steps to enter with no issues. ADLs/IADLs: Ind Transportation: Self, DME: Cane and walker at home but does not use. Pt uses an ASV machine at night with no additional O2 bleed thru. HHC/SNF: Denies history or needs. Pt?s goal: Home Plan: Pt states that he wishes to be DC home with no additional needs or concerns at this time. CM to follow for safe DC home. [place] Oconnell RN, CM
--- NOTE | 2023-09-11 12:37 | EX.PCM.CON.G ---
HPI Consult Data Date of Consult: 09/11/23 HPI Narrative Reason for Consultation: GI bleed HPI Narrative: DEXTER MCGARRY, is a 78 M with a past medical history of essential hypertension, hyperlipidemia, hypothyroidism, obstructive sleep apnea; on CPAP, remote history of tobacco abuse (quit 55 years ago), BPH, OA; with recent steroid injection. He also has a history of nonrheumatic aortic valve stenosis and PAF; on apixaban with history of DCCV (2022). He presented to [facility] ER complaining of chest pain and palpitations. Mr. Mcgarry reports his symptoms began at approximately 23:00 hours on the evening of September 10, 2023 with the abrupt-onset of chest that began after he had a dark black stool. Then while he was in the bathroom he suddenly developed chest pain that was pressure-like, substernal and nonradiating. He then became diaphoretic and almost passed out with a sensation his heart was racing with severe palpitations and he finally decided to come in for further evaluation and treatment. He denies associated fever, vomiting, diaphoresis, known history of GI bleeding or similar previous episodes but he does admit to intermittent nausea. In the ER he was diagnosed with a suspected UGIB due to PUD with melanotic stools complicated by Symptomatic Acute Blood Loss Anemia with a highly elevated BUN of 55 mg/dL with a serum creatinine of 1.16 mg/dL present on admission with an EKG positive for paroxysmal atrial flutter; with rapid ventricular response requiring treatment with IV diltiazem plus IV metoprolol compounded by chest pain with an initial troponin of 28 pg/mL rising to 72 pg/mL (technically still in normal range but worrisome to ER physician) with concern for evolving demand ischemia plus he was confirmed to have Hemoccult positive stools in the ER. He had a CTA of the chest abdomen pelvis that displayed : Nonobstructive stone in the right kidney measures 6 mm. There is an exophytic cyst in the right kidney measures 1.5 cm. There is no evidence of active GI bleeding on the study. He had a bleeding scan: It also displayed no signs or symptoms of GI bleeding in upper or lower GI tract. His hemoglobin was 16 and has been trending down to 10 mg/dL. [facility] Medical History Accelerated essential hypertension Atrial flutter Enlarged prostate Essential hypertension HTN (hypertension) Hypersomnolence Hypothyroid Monocytosis Nonrheumatic aortic (valve) stenosis MONIKA (obstructive sleep apnea) Osteoarthritis PSA elevation Sleep disorder Home Medications finasteride 5 mg tablet 5 mg PO DAILY 12/12/21 [History Last Taken Unknown] glucosamine-chondroitin 250 mg-200 mg tablet (Osteo Bi-Flex) 2 tab PO QPC 12/12/21 [History Last Taken 12/09/22] apixaban 5 mg tablet (Eliquis) 5 mg PO BID #120 tabs 11/06/22 [Rx Last Taken 12/09/22] levothyroxine 50 mcg tablet 50 mcg PO DAILY 11/06/22 [History Last Taken 12/09/22] saw palmetto 450 mg capsule 450 mg PO BID 11/06/22 [History Last Taken 12/09/22] irbesartan 75 mg tablet 75 mg PO DAILY #90 tabs 03/14/23 [Rx Last Taken Unknown] metoprolol succinate 50 mg tablet,extended release 24 hr 50 mg PO BID #180 tabs 04/28/23 [Rx Last Taken Unknown] Allergy/AdvReac Type Severity Reaction Status Date / Time No Known Allergies Allergy Verified 09/10/23 23:57 Family History Sister Cancer leukemia Hypertension Heart disease Mother Heart disease Father Myocardial infarction Other Diabetes Surgical History History of cardioversion Social History household members: spouse Smoking Status: Former smoker how long ago did patient quit smokin yrs alcohol intake: never substance use type: does not use caffeine: No ROS Constitutional Constitutional: Denies fever(s) or weight loss Eyes Eyes: Reports systems reviewed and no addt'l complaints, except as documented ENT HEENT: Reports systems reviewed and no addt'l complaints, except as documented Cardiovascular Cardiovascular: Reports palpitations; Denies chest pain at rest, chest pain with activity, dyspnea at rest, dyspnea on exertion, edema or paroxysmal nocturnal dyspnea Respiratory/Chest Respiratory/Chest: Denies dyspnea on exertion, productive cough, shortness of breath at rest or shortness of breath with exertion Gastrointestinal Gastrointestinal: Reports melena; Denies change in bowel habits, nausea, vomiting or weight changes Genitourinary Genitourinary: Denies difficulty urinating Musculoskeletal Musculoskeletal: Denies joint stiffness or muscle weakness Integumentary Integumentary: Denies lesions Neurologic Neurologic: Denies dizziness or syncope Psychiatric Psychiatric: Denies anxiety Endocrine Endocrinology: Denies excessive sweating or fatigue Hematologic/Lymphatic Hematologic/Lymphatic: Denies anemia Allergic/Immunologic Allergic/Immunologic: Denies seasonal rhinorrhea Physical Exam Const alert, oriented x3, no apparent distress, average body habitus, healthy appearing and well nourished General Appearance: cooperative and well developed HEENT normocephalic, head/scalp atraumatic, hearing grossly normal bilaterally, EAC's normal, moist oral mucous membranes and oropharynx normal Eyes PERRL and EOMs intact bilaterally Neck no lymphadenopathy, supple and no JVD Lymph Lymphatic: no lymphadenopathy noted and no lymphedema noted Resp normal respiratory effort, normal air movement, no retractions, no use of accessory muscles and clear to auscultation bilaterally Cardio regular rate and regular rhythm Cardio Narrative: atrial flutter, rate controlled GI normal to inspection, nondistended, normoactive bowel sounds, soft to palpation, non-tender and non-distended Extremity normal to inspection, full ROM, normal capillary refill, no clubbing, cyanosis or edema and no calf tenderness General Extremity: no tenderness to palpation of joints or extremities Skin General Skin Exam: no breakdown Neuro oriented x3, CN's II-XII intact bilaterally, moves all extremities, no focal motor deficits, no sensory deficits noted and deep tendon reflexes 2+ bilaterally Sensorium / Orientation: awake, alert, oriented to person, oriented to place and oriented to time Coordination / Balance: [id number] test normal Speech: speech normal Motor Exam: strength 5/5 throughout and general weakness Psych thought process normal, cooperative and affect normal Appearance: appropriate Lab / Micro Data 09/12/23 04:20 09/12/23 04:20 Labs: Laboratory Results - last 24 hr 09/12/23 04:20: WBC 11.3 H, RBC 3.57 L, Hgb 10.0 L, Hct 31.6 L, MCV 88.5, MCH 28.0, MCHC 31.6 L, RDW Std Deviation 46.0 H, RDW Coeff of Sneha 14.2, Plt Count 206, MPV 11.5, Immature Gran % (Auto) 1.500 H, Neut % (Auto) 60.8, Lymph % (Auto) 16.1 L, [place] % (Auto) 20.9 H, Eos % (Auto) 0.3, Baso % (Auto) 0.4, Absolute Neuts (auto) 6.9, Absolute Lymphs (auto) 1.82, Nucleated RBC % 0, Sodium 143, Potassium 4.6, Chloride 113 H, Carbon Dioxide 25.0, Anion Gap 5, BUN 38 H, Creatinine 1.11, Estim Creat Clear Calc 70.73, Est GFR (MDRD) Af Amer 83, Est GFR (MDRD) Non-Af 68, BUN/Creatinine Ratio 34.2 H, Glucose 92, Calcium 8.0 L, Phosphorus 3.6, Magnesium 2.1, Total Bilirubin 0.70, AST 8 L, ALT 15 L, Alkaline Phosphatase 40 L, Total Protein 5.9 L, Albumin 2.9 L, Globulin 3.0, Albumin/Globulin Ratio 1.0, TSH 4.16 H Assessment & Plan Assessment/Plan (1) GI (gastrointestinal bleed): QUALIFIERS: GI bleed type/associated pathology: melena Qualified Code(s): K92.1 - Melena (2) Adverse reaction to drug: QUALIFIERS: Encounter type: initial encounter Qualified Code(s): T50.905A - Adverse effect of unspecified drugs, medicaments and biological substances, initial encounter (3) Chest pain: QUALIFIERS: Chest pain type: unspecified Qualified Code(s): R07.9 - Chest pain, unspecified (4) Atrial flutter: QUALIFIERS: Atrial flutter type: typical Qualified Code(s): I48.3 - Typical atrial flutter PLAN: Plan Upper GI bleed likely due to underlying peptic ulcer disease with melanotic stools and a highly elevated BUN of 55 mg/dL with a normal creatinine of 1.16 mg/dL present on admission -the differential diagnosis also includes daily Jenn lesion, angiodysplasia, telangiectasia, medication side effect of anticoagulation. Also in the differential diagnosis is adverse drug reaction to apixaban in combination with recent steroids causing symptomatic acute blood loss anemia with hemoglobin of 12.9 g/dL present on admission due to #1 - Stop apixaban immediately. Type and screen blood and transfuse for hemoglobin less than 7 g/dL or in case of severe and/or prolonged bleeding. He will undergo an upper endoscopy to evaluate his upper GI tract. He was explained alternatives, risk, benefits including outstanding bleeding, infection, sepsis, perforation, need for discharge and . He will have an ASA of Charges/Coding Visit Charges Inpatient E&M: 77183 Init Hosp L3
--- NOTE | 2023-09-11 14:27 | PN_ITS ---
Subjective Subjective Patient seen and examined. He complains of weakness and shortness of breath with exertion. He admits to palpitations. He had a bowel movement today which was also bloody. Review of systems otherwise negative. Objective Data Objective Data Vital Signs: Vital Signs Temp Pulse Resp BP Pulse Ox O2 Del Method 98.1 F 93 18 103/75 97 Room Air 09/11/23 12:00 09/11/23 12:00 09/11/23 12:00 09/11/23 12:00 09/11/23 12:00 09/11/23 12:00 Oxygen Delivery Method Room Air Weight: 237 lb 14.06 oz Body Mass Index (BMI) 32.2 Intake & Output: Intake and Output for Last 24 Hours 09/09/23 09/10/23 09/11/23 23:59 23:59 23:59 Intake Total 1202.58 / 1202.58 Balance 1202.58 / 1202.58 Lab / Micro Data 09/11/23 00:07 09/11/23 00:07 Labs: Laboratory Results - last 24 hr 09/11/23 00:07: WBC 16.9 H, RBC 4.62, Hgb 12.9 L, Hct 40.0, MCV 86.6, MCH 27.9, MCHC 32.3, RDW Std Deviation 42.5, RDW Coeff of Sneha 13.6, Plt Count 263, MPV 11.9, Immature Gran % (Auto) 0.800, Neut % (Auto) 73.4 H, Lymph % (Auto) 6.8 L, [place] % (Auto) 18.7 H, Eos % (Auto) 0.1, Baso % (Auto) 0.2, Absolute Neuts (auto) 12.4 H, Absolute Lymphs (auto) 1.14, Nucleated RBC % 0, Differential Comment SCANNED, Diff Path Review October foll, PT 16.4 H, INR 1.3, APTT 25.8, Sodium 139, Potassium 4.2, Chloride 107, Carbon Dioxide 23.0, Anion Gap 9, BUN 55 H, Creatinine 1.16, Estim Creat Clear Calc 68.25, Est GFR (MDRD) Af Amer 79, Est GFR (MDRD) Non-Af 65, BUN/Creatinine Ratio 47.4 H, Glucose 164 H, Calcium 8.9, Magnesium 2.1, Troponin I High Sens 28, TSH 1.91 09/11/23 02:21: Troponin I High Sens 72 09/11/23 06:30: Troponin I High Sens 62, Blood Type O POSITIVE, Antibody Screen NEGATIVE Micro: Microbiology 09/11/23 02:10 Stool Stool Occult Blood (SARAN) - Final Occult Blood Positive Radiography Diagnostic Testing: Radiology Impression Chest X-Ray 09/11/23 00:33 IMPRESSION: No radiographic evidence of acute cardiopulmonary disease. Electronically Signed: Sabiha Tovar MD at 1:54 EDT , Chest/Abdomen/Pelvis CTA 09/11/23 02:45 IMPRESSION: Normal contrast-enhanced CT of the chest. Nonobstructive stone in the right kidney measures 6 mm. There is an exophytic cyst in the right kidney measures 1.5 cm. Electronically Signed: Sabiha Tovar MD at 3:57 EDT , GI Bleed Scan Nuclear Medicine 09/11/23 05:21 IMPRESSION: 1. NEGATIVE 99m Tc ULTRATAG LABELED BLOOD POOL GASTROINTESTINAL BLEEDING EXAMINATION. 2. There is no definitive scintigraphic evidence of acute gastrointestinal hemorrhage on the present evaluation. The Electronically Signed: Kris Bethea DO at 12:01 EDT , Echocardiogram 09/11/23 06:27 Interpretation Summary Normal LV size. Left ventricular systolic function is normal. The estimated ejection fraction is 65 %. Moderate focal aortic valve calcification. Mean aortic valve gradient 26 mmHg. Moderate aortic stenosis. Contrast injection was performed. Ordering Physician: Obinna Bueno Performed By: Jimmie Fitzgerald RCS Physical Exam Const alert, oriented x3, no apparent distress and well nourished General Appearance: cooperative and well developed HEENT normocephalic, head/scalp atraumatic, EAC's normal, moist oral mucous membranes and oropharynx normal Eyes PERRL and EOMs intact bilaterally Neck no lymphadenopathy, supple and no JVD Lymph Lymphatic: no lymphadenopathy noted and no lymphedema noted Resp normal respiratory effort, normal air movement and clear to auscultation bilaterally Cardio Cardio Narrative: atrial flutter, with RVR< HR was in the 110s and 120s during my evaluation. GI normal to inspection, nondistended, normoactive bowel sounds, soft to palpation, non-tender and non-distended Extremity normal capillary refill, no clubbing, cyanosis or edema and no calf tenderness General Extremity: no tenderness to palpation of joints or extremities Skin General Skin Exam: no breakdown Neuro CN's II-XII intact bilaterally, no focal motor deficits, no sensory deficits noted and deep tendon reflexes 2+ bilaterally Coordination / Balance: [id number] test normal Motor Exam: general weakness Psych thought process normal and cooperative Appearance: appropriate Assessment & Plan Assessment/Plan (1) GI (gastrointestinal bleed): QUALIFIERS: GI bleed type/associated pathology: melena Qualified Code(s): K92.1 - Melena (2) Atrial flutter: QUALIFIERS: Atrial flutter type: typical Qualified Code(s): I48.3 - Typical atrial flutter PLAN: Plan #GI bleed * Admitted with a complaint of dark stools. He also had bloody stools this morning. * On IV Protonix. Currently n.p.o. and be hydrated with IV fluids. * Gastroenterology on board. Nuclear bleeding scan done is negative for any evidence of GI bleed. * INR is 1.3. * Hb is 12.9 * #Atrial flutter with RVR * Was on Cardizem drip at time of my review. Cardiology consulted. * Eliquis on hold. 2D echo done today showed EF of 65% with no regional wall motion abnormalities and moderate aortic stenosis, with normal LVSF. * Being switched to p.o. metoprolol at time of my review. To wean off Cardizem if you metoprolol help control heart rate. * #History of aortic stenosis: Stable #Benign essential hypertension: BP meds on hold #Hyperlipidemia: On statin. This is on hold as patient is NPO. #Hypothyroidism: On Synthroid #Obesity: BMI is 32.3. Complicates acute care, expected recovery and prognosis. #BPH: On Flomax DVT prophylaxis: SCDs Charges/Coding Visit Charges Inpatient E&M: 30864 Subs Hosp L3
--- NOTE | 2023-09-11 20:53 | NURSING ---
Pt's at bedside, reminded visiting hours end at 1999; active [place] warning for [facility] at this time so she's permitted to stay for the duration of the warning. Pt's blinds pulled and door closed.
[2023-09-12] VITALS (30 sets, daily range): BP systolic 70–130; BP diastolic 46–84; PULSE 43–126; RESP 10–28; TEMP 35.7–36.7; O2SAT 92–100; BMI 32.3
[2023-09-12] MEDS: Pantoprazole Sodium 80 MG in 0.9% Normal Saline (100mL Bag) 80 ML 10 MG CONT INF ×3 (01:11→22:17)
[2023-09-12 04:31] LABS: Absolute Lymphocyte Count 1.82 X10^3/uL (0.83-4.51); Absolute Neutrophil Count 6.9 X10^3/uL (2.0-7.7); Basophil# 0.04 X10^3/uL; Basophil% 0.4 % (0-1); Eosinophil# 0.03 X10^3/uL; Eosinophils% 0.3 % (0-5); Hematocrit 31.6 % (40-54); Lymphocyte # 1.82 X10^3/ul (0.83-4.51); Lymphocyte % 16.1 % (19-41); Mean Corp Hgb Conc 31.6 g/dL (32-36); Mean Corpuscular Volume 88.5 fL (80-94); Mean Platelet Vol. 11.5 fl (6.2-12.0); Monocyte# 2.36 X10^3/uL; Monocyte% 20.9 % (0-10); NRBC Flagged by Analyzer 0 % (0-5); Neutrophil # 6.89 X10^3/uL (2.7-7.7); Neutrophil % 60.8 % (47-70); POSITIVE DIFFERENTIAL YES; Platelet Count 206 K/mm3 (150-450); RBC Distribution Width CV 14.2 % (11.6-14.6); Red Blood Count 3.57 M/mm3 (4.6-6.2); White Blood Count 11.3 K/mm3 (4.4-11.0)
[2023-09-12 04:53] LABS: Differential Indicated SCAN CRITERIA MET
[2023-09-12 04:55] LABS: AST(SGOT) 8 U/L (15-37); Alanine Aminotransfer ALT/SGPT 15 U/L (16-61); Albumin, Serum 2.9 g/dL (3.2-5.0); Alkaline Phosphatase 40 U/L (45-117); Anion Gap 5 (5-15); BUN 38 mg/dL (7-18); BUN/Creat Ratio 34.2 RATIO (10-20); Chloride 113 mmol/L (98-107); Creatinine, Serum 1.11 mg/dL (0.70-1.30); EST Glomerular Filtration Rate 68 mL/min (>60); Est Glom Filt Rate - Afr Amer 83 mL/min (>60); Estimated Creatinine Clearance 70.73 ml/min; Glucose 92 mg/dL (74-106); Magnesium 2.1 mg/dL (1.6-2.6); Phosphorus 3.6 mg/dL (2.5-4.9); Potassium 4.6 mmol/L (3.5-5.1); Protein, Total 5.9 g/dL (6.4-8.2); Sodium Level 143 mmol/L (136-145); Thyroid Stim Hormone (TSH) 4.16 uIU/mL (0.358-3.74)
--- NOTE | 2023-09-12 10:02 | PN_ITS ---
Subjective Subjective Patient seen and examined. He said he felt much better. He had no active complaints and had an uneventful night. He is still having blood in his stool but says this got so much better. Review of systems otherwise negative. His heart rate control is improving. Cardiology is on board and he is awaiting GI evaluation. Objective Data Objective Data Vital Signs: Vital Signs Temp Pulse Resp BP Pulse Ox O2 Del Method FiO2 98.1 F 88 11 L 90/62 99 CPAP 21 09/12/23 04:00 09/12/23 06:00 09/12/23 06:00 09/12/23 06:00 09/12/23 06:00 09/12/23 06:00 09/12/23 06:00 Oxygen Delivery Method CPAP Weight: 238 lb 15.697 oz Body Mass Index (BMI) 32.3 Intake & Output: Intake and Output for Last 24 Hours 09/10/23 09/11/23 09/12/23 23:59 23:59 23:59 Intake Total 2446.50 / 2451.50 Balance 2446.50 / 2451.50 Lab / Micro Data 09/12/23 04:20 09/12/23 04:20 Labs: Laboratory Results - last 24 hr 09/12/23 04:20: WBC 11.3 H, RBC 3.57 L, Hgb 10.0 L, Hct 31.6 L, MCV 88.5, MCH 28.0, MCHC 31.6 L, RDW Std Deviation 46.0 H, RDW Coeff of Sneha 14.2, Plt Count 206, MPV 11.5, Immature Gran % (Auto) 1.500 H, Neut % (Auto) 60.8, Lymph % (Auto) 16.1 L, [place] % (Auto) 20.9 H, Eos % (Auto) 0.3, Baso % (Auto) 0.4, Absolute Neuts (auto) 6.9, Absolute Lymphs (auto) 1.82, Nucleated RBC % 0, Sodium 143, Potassium 4.6, Chloride 113 H, Carbon Dioxide 25.0, Anion Gap 5, BUN 38 H, Creatinine 1.11, Estim Creat Clear Calc 70.73, Est GFR (MDRD) Af Amer 83, Est GFR (MDRD) Non-Af 68, BUN/Creatinine Ratio 34.2 H, Glucose 92, Calcium 8.0 L , Phosphorus 3.6, Magnesium 2.1, Total Bilirubin 0.70, AST 8 L, ALT 15 L, Alkaline Phosphatase 40 L, Total Protein 5.9 L, Albumin 2.9 L, Globulin 3.0, Albumin/Globulin Ratio 1.0, TSH 4.16 H Micro: Microbiology 09/11/23 02:10 Stool Stool Occult Blood (SARAN) - Final Occult Blood Positive Radiography Diagnostic Testing: Radiology Impression GI Bleed Scan Nuclear Medicine 09/11/23 05:21 IMPRESSION: 1. NEGATIVE 99m Tc ULTRATAG LABELED BLOOD POOL GASTROINTESTINAL BLEEDING EXAMINATION. 2. There is no definitive scintigraphic evidence of acute gastrointestinal hemorrhage on the present evaluation. The Electronically Signed: Kris Bethea DO at 12:01 EDT , Echocardiogram 09/11/23 06:27 Interpretation Summary Normal LV size. Left ventricular systolic function is normal. The estimated ejection fraction is 65 %. Moderate focal aortic valve calcification. Mean aortic valve gradient 26 mmHg. Moderate aortic stenosis. Contrast injection was performed. Ordering Physician: Obinna Bueno Performed By: Jimmie Fitzgerald RCS Physical Exam Const alert, oriented x3, no apparent distress, average body habitus, healthy appearing and well nourished General Appearance: cooperative and well developed HEENT normocephalic, head/scalp atraumatic, hearing grossly normal bilaterally, EAC's normal, moist oral mucous membranes and oropharynx normal Eyes PERRL and EOMs intact bilaterally Neck no lymphadenopathy, supple and no JVD Lymph Lymphatic: no lymphadenopathy noted and no lymphedema noted Resp normal respiratory effort, normal air movement, no retractions, no use of accessory muscles and clear to auscultation bilaterally Cardio regular rate and regular rhythm Cardio Narrative: atrial flutter, rate controlled GI normal to inspection, nondistended, normoactive bowel sounds, soft to palpation, non-tender and non-distended Extremity normal to inspection, full ROM, normal capillary refill, no clubbing, cyanosis or edema and no calf tenderness General Extremity: no tenderness to palpation of joints or extremities Skin General Skin Exam: no breakdown Neuro oriented x3, CN's II-XII intact bilaterally, moves all extremities, no focal motor deficits, no sensory deficits noted and deep tendon reflexes 2+ bilaterally Sensorium / Orientation: awake, alert, oriented to person, oriented to place and oriented to time Coordination / Balance: [id number] test normal Speech: speech normal Motor Exam: strength 5/5 throughout and general weakness Psych thought process normal, cooperative and affect normal Appearance: appropriate Assessment & Plan Assessment/Plan (1) GI (gastrointestinal bleed): QUALIFIERS: GI bleed type/associated pathology: melena Qualified Code(s): K92.1 - Melena (2) Atrial flutter: QUALIFIERS: Atrial flutter type: typical Qualified Code(s): I48.3 - Typical atrial flutter PLAN: Plan #GI bleed * Admitted with a complaint of dark stools. He also had bloody stools this morning. * On IV Protonix. * Gastroenterology on board. Nuclear bleeding scan done is negative for any evidence of GI bleed. * INR is 1.3. * Hb is 10 today * #Atrial flutter with RVR * now off cardizem drip. RVR has resolved * cardiology on board. * now on PO cardizem. * Eliquis on hold. 2D echo done showed EF of 65% with no regional wall motion abnormalities and moderate aortic stenosis, with normal LVSF. * #Elevated TSH: TSH is 4.16. Was 1.91 just yesterday. Unclear why it was checked again. Will check free T4. #History of aortic stenosis: Stable #Benign essential hypertension: BP meds on hold #Hyperlipidemia: On statin. This is on hold as patient is NPO. #Hypothyroidism: On Synthroid #Obesity: BMI is 32.3. Complicates acute care, expected recovery and prognosis. #BPH: On Flomax DVT prophylaxis: SCDs Charges/Coding Visit Charges Inpatient E&M: 40168 Subs Hosp L2
[2023-09-12] MEDS: 0.9% Normal Saline (1000mL) 1,000 ML 70 ML IV ×2 (10:26→17:06)
[2023-09-12] MEDS: Metoprolol Tartrate 50 MG Tablet PO ×2 (10:37→21:27)
--- NOTE | 2023-09-12 12:13 | PCM.PN.CARD ---
Subjective Subjective Patient seen and evaluated. Appears to be doing better this morning. Objective Data Vital Signs: Vital Signs Temp Pulse Resp BP Pulse Ox O2 Del Method FiO2 97.8 F 91 18 114/75 94 Room Air 21 09/12/23 08:00 09/12/23 11:00 09/12/23 11:00 09/12/23 11:00 09/12/23 11:00 09/12/23 11:00 09/12/23 06:00 Oxygen Delivery Method Room Air Weight: 238 lb 15.697 oz Body Mass Index (BMI) 32.3 Intake & Output: Intake and Output for Last 24 Hours 09/10/23 09/11/23 09/12/23 23:59 23:59 23:59 Intake Total 2446.50 / 2451.50 958.67 / 958.67 Balance 2446.50 / 2451.50 958.67 / 958.67 Lab / Micro Data 09/12/23 04:20 09/12/23 04:20 Labs: Laboratory Results - last 24 hr 09/12/23 04:20: WBC 11.3 H, RBC 3.57 L, Hgb 10.0 L, Hct 31.6 L, MCV 88.5, MCH 28.0, MCHC 31.6 L, RDW Std Deviation 46.0 H, RDW Coeff of Sneha 14.2, Plt Count 206, MPV 11.5, Immature Gran % (Auto) 1.500 H, Neut % (Auto) 60.8, Lymph % (Auto) 16.1 L, [place] % (Auto) 20.9 H, Eos % (Auto) 0.3, Baso % (Auto) 0.4, Absolute Neuts (auto) 6.9, Absolute Lymphs (auto) 1.82, Nucleated RBC % 0, Sodium 143, Potassium 4.6, Chloride 113 H, Carbon Dioxide 25.0, Anion Gap 5, BUN 38 H, Creatinine 1.11, Estim Creat Clear Calc 70.73, Est GFR (MDRD) Af Amer 83, Est GFR (MDRD) Non-Af 68, BUN/Creatinine Ratio 34.2 H, Glucose 92, Calcium 8.0 L, Phosphorus 3.6, Magnesium 2.1, Total Bilirubin 0.70, AST 8 L, ALT 15 L, Alkaline Phosphatase 40 L, Total Protein 5.9 L, Albumin 2.9 L, Globulin 3.0, Albumin/Globulin Ratio 1.0, TSH 4.16 H Cardiology Labs/Tests 09/12/23 04:20: WBC 11.3 H, RBC 3.57 L, Hgb 10.0 L, Hct 31.6 L, MCV 88.5, MCH 28.0, MCHC 31.6 L, Plt Count 206, MPV 11.5, Immature Gran % (Auto) 1.500 H, Neut % (Auto) 60.8, Lymph % (Auto) 16.1 L, [place] % (Auto) 20.9 H, Eos % (Auto) 0.3, Baso % (Auto) 0.4, Absolute Neuts (auto) 6.9, Nucleated RBC % 0, Sodium 143, Potassium 4.6, Chloride 113 H, Carbon Dioxide 25.0, Anion Gap 5, BUN 38 H, Creatinine 1.11, Est GFR (MDRD) Af Amer 83, Est GFR (MDRD) Non-Af 68, BUN/Creatinine Ratio 34.2 H, Glucose 92, Calcium 8.0 L, Phosphorus 3.6, Magnesium 2.1, Total Bilirubin 0.70 Rhythm: EKG: ECHO: Stress Test: Cardiac Cath: PCI: CT Surgery: Holter monitor: EPS: PPM: CXR: Chest CT Scan: Physical Exam Const alert, oriented x3, no apparent distress, average body habitus, healthy appearing and well nourished General Appearance: cooperative and well developed HEENT normocephalic, head/scalp atraumatic, hearing grossly normal bilaterally, EAC's normal, moist oral mucous membranes and oropharynx normal Eyes PERRL and EOMs intact bilaterally Neck no lymphadenopathy, supple and no JVD Lymph Lymphatic: no lymphadenopathy noted and no lymphedema noted Resp normal respiratory effort, normal air movement, no retractions, no use of accessory muscles and clear to auscultation bilaterally Cardio regular rate and regular rhythm Cardio Narrative: atrial flutter, rate controlled GI normal to inspection, nondistended, normoactive bowel sounds, soft to palpation, non-tender and non-distended Extremity normal to inspection, full ROM, normal capillary refill, no clubbing, cyanosis or edema and no calf tenderness General Extremity: no tenderness to palpation of joints or extremities Skin General Skin Exam: no breakdown Neuro oriented x3, CN's II-XII intact bilaterally, moves all extremities, no focal motor deficits, no sensory deficits noted and deep tendon reflexes 2+ bilaterally Sensorium / Orientation: awake, alert, oriented to person, oriented to place and oriented to time Coordination / Balance: [id number] test normal Speech: speech normal Motor Exam: strength 5/5 throughout and general weakness Psych thought process normal, cooperative and affect normal Appearance: appropriate Assessment & Plan Assessment/Plan (1) Atrial flutter: QUALIFIERS: Atrial flutter type: typical Qualified Code(s): I48.3 - Typical atrial flutter PLAN: He presented with atrial flutter with uncontrolled ventricular response rate. His rate is better at this time. His beta-diann has been increased. IV diltiazem is off at this time. He is scheduled to undergo GI evaluation later this morning. (2) Nonrheumatic aortic (valve) stenosis: PLAN: He does have evidence of at least moderate aortic stenosis. His last echocardiogram was over a year ago. I would recommend that we repeat the above very characterization of his aortic valve gradients. This could be contributing to some of his atrial flutter. (3) Essential hypertension: PLAN: His blood pressure appears to be under decent control at this time and the plan to be for him to continue with his beta-diann as well as the irbesartan. I will be hesitant to drop his blood pressure too much because of his aortic stenosis. (4) Hyperlipidemia: QUALIFIERS: Hyperlipidemia type: mixed hyperlipidemia Qualified Code(s): E78.2 - Mixed hyperlipidemia PLAN: He will continue with secondary risk factor modification with regard to his hyperlipidemia. Thank you for allowing me to participate in the care of your patient. Please don't hesitate to call if any issues arise. (5) GI (gastrointestinal bleed): QUALIFIERS: GI bleed type/associated pathology: melena Qualified Code(s): K92.1 - Melena PLAN: He appears to have a recent onset GI bleed. Will defer to the hospitalist and the GI service. However would recommend from the cardiac standpoint that his Eliquis be discontinued. I would not recommend aspirin either. Thank you for allowing me to participate in the care of your patient. Please don't hesitate to call if any issues arise.
--- NOTE | 2023-09-12 12:43 | OP.CCLET_ITS ---
09/12/2023 Kris Barone Re : Upper GI endoscopy procedure for Guillermo Mcgarry Dear Lizabeth This procedure was performed on Tuesday, September 12, 2023. My impressions and recommendations are as follows: Impressions : - Normal esophagus. - Erythematous mucosa in the gastric fundus. - Non-bleeding duodenal ulcer with pigmented material. Injected. Treated with a heater probe. - No specimens collected. - Possible ischemic duodenitis with ulceration in the setting of anticoagulation Recommendations : - [facility]. Protonix 40 mg p.o. twice daily and Carafate 1 g p.o. 3 times daily both for 12 weeks. - Continue present medications. My findings are described in the full procedure note, which is enclosed. If I can be of further assistance, please feel free to contact me at . Sincerely, Eliazar Cope, 09/12/2023 12:42:39 PM This report has been signed electronically.
--- NOTE | 2023-09-12 12:43 | OP.EGD_ITS ---
Patient Name: Guillermo Mcgarry Procedure Date: 09/12/2023 11:56 AM Date of : 1945 Age: 78 Procedure: Upper GI endoscopy Indications: Iron deficiency anemia, Melena Providers: Eliazar Cope DO Medicines: Monitored Anesthesia Care Patient Profile: This is a 78 year old male. Refer to note in patient chart for documentation of history and physical. Patient has symptoms of acute epigastric abdominal pain. Complications: No immediate complications. Procedure: Pre-Anesthesia Assessment: - Prior to the procedure, a History and Physical was performed, and patient medications and allergies were reviewed. The patient is competent. The risks and benefits of the procedure and the sedation options and risks were discussed with the patient. All questions were answered and informed consent was obtained. Patient identification and proposed procedure were verified by the physician in the pre-procedure area. Mental Status Examination: alert and oriented. Respiratory Examination: clear to auscultation. CV Examination: normal. Prophylactic Antibiotics: The patient does not require prophylactic antibiotics. Prior Anticoagulants: The patient has taken Eliquis (apixaban), last dose was 1 day prior to procedure. ASA Grade Assessment: IV - A patient with severe systemic disease that is a constant threat to life. After reviewing the risks and benefits, the patient was deemed in satisfactory condition to undergo the procedure. The anesthesia plan was to use monitored anesthesia care (MAC). Immediately prior to administration of medications, the patient was re-assessed for adequacy to receive sedatives. The heart rate, respiratory rate, oxygen saturations, blood pressure, adequacy of pulmonary ventilation, and response to care were monitored throughout the procedure. The physical status of the patient was re-assessed after the procedure. After obtaining informed consent, the endoscope was passed under direct vision. Throughout the procedure, the patient's blood pressure, pulse, and oxygen saturations were monitored continuously. The Endoscope was introduced through the mouth, and advanced to the second part of duodenum. The upper GI endoscopy was accomplished without difficulty. The patient tolerated the procedure well. Scope In: 12:05:53 PM Scope Out: 12:26:56 PM Total Procedure Duration Time 0 hours 21 minutes 3 seconds Findings: The examined esophagus was normal. Patchy mildly erythematous mucosa without bleeding was found in the gastric fundus. One non-bleeding cratered duodenal ulcer with pigmented material was found in the second portion of the duodenum. The lesion was 20 mm in largest dimension. Area was successfully injected with 5 mL of a 0.1 mg/mL solution of epinephrine for drug delivery. Coagulation for hemostasis using heater probe was successful. Impression: - Normal esophagus. - Erythematous mucosa in the gastric fundus. - Non-bleeding duodenal ulcer with pigmented material. Injected. Treated with a heater probe. - No specimens collected. - Possible ischemic duodenitis with ulceration in the setting of anticoagulation Recommendation: - [facility] care. Protonix 40 mg p.o. twice daily and Carafate 1 g p.o. 3 times daily both for 12 weeks. - Continue present medications. Procedure Code(s): --- Professional --- 64379, Esophagogastroduodenoscopy, flexible, transoral; with control of bleeding, any method 72661, 59,51, Esophagogastroduodenoscopy, flexible, transoral; with directed submucosal injection(s), any substance CPT copyright 2021 [employer]. All rights reserved. The codes documented in this report are preliminary and upon injection molding process technician review may be revised to meet current compliance requirements. Eliazar Cope DO 09/12/2023 12:42:39 PM This report has been signed electronically. Number of Addenda: 0 Note Initiated On: 09/12/2023 11:56 AM
[2023-09-12] MEDS: Sucralfate 1 GM Tablet PO (15:07)
[2023-09-12 15:20] LABS: Pathologist Review Reviewed
[2023-09-13] VITALS (9 sets, daily range): BP systolic 94–120; BP diastolic 53–75; PULSE 67–112; RESP 12–18; TEMP 36.2–36.7; O2SAT 97–99; BMI 33.3
[2023-09-13] MEDS: 0.9% Normal Saline (1000mL) 1,000 ML 70 ML IV (03:42)
[2023-09-13] MEDS: Sucralfate 1 GM Tablet PO ×3 (05:33→15:13)
[2023-09-13] MEDS: Pantoprazole Sodium 80 MG in 0.9% Normal Saline (100mL Bag) 80 ML 10 MG CONT INF (08:35)
[2023-09-13] MEDS: Metoprolol Tartrate 50 MG Tablet PO ×2 (08:35→21:25)
--- NOTE | 2023-09-13 13:18 | PN_ITS ---
Subjective Subjective Patient seen and examined. He had no active complaints. Review of systems is otherwise negative. He had EGD yesterday which showed normal esophagus with nonobleeding duodenal ulcer with pigmented material and possible ischemic duodenitis with ulceration in the setting of anticoagulation. Objective Data Objective Data Vital Signs: Vital Signs Temp Pulse Resp BP Pulse Ox O2 Del Method FiO2 97.2 F L 79 17 94/68 97 Room Air 21 09/13/23 10:00 09/13/23 10:00 09/13/23 10:00 09/13/23 10:00 09/13/23 10:00 09/13/23 10:00 09/12/23 06:00 Oxygen Delivery Method Room Air Weight: 245 lb 5.992 oz Body Mass Index (BMI) 33.3 Intake & Output: Intake and Output for Last 24 Hours 09/11/23 09/12/23 09/13/23 23:59 23:59 23:59 Intake Total 2446.50 / 2451.50 2875.84 / 2875.84 962 / 962 Balance 2446.50 / 2451.50 2875.84 / 2875.84 962 / 962 Lab / Micro Data 09/12/23 04:20 09/12/23 04:20 Labs: Laboratory Results - last 24 hr 09/11/23 00:07: Diff Path Review Reviewed 09/12/23 04:20: Diff Path Review May Micro: Microbiology 09/11/23 02:10 Stool Stool Occult Blood (SARAN) - Final Occult Blood Positive Physical Exam Const alert, oriented x3, no apparent distress, average body habitus, healthy appearing and well nourished General Appearance: cooperative and well developed HEENT normocephalic, head/scalp atraumatic, hearing grossly normal bilaterally, EAC's normal, moist oral mucous membranes and oropharynx normal Eyes PERRL and EOMs intact bilaterally Neck no lymphadenopathy, supple and no JVD Lymph Lymphatic: no lymphadenopathy noted and no lymphedema noted Resp normal respiratory effort, normal air movement, no retractions, no use of accessory muscles and clear to auscultation bilaterally Cardio regular rate and regular rhythm Cardio Narrative: atrial flutter, rate controlled GI normal to inspection, nondistended, normoactive bowel sounds, soft to palpation, non-tender and non-distended Extremity normal to inspection, full ROM, normal capillary refill, no clubbing, cyanosis or edema and no calf tenderness General Extremity: no tenderness to palpation of joints or extremities Skin General Skin Exam: no breakdown Neuro oriented x3, CN's II-XII intact bilaterally, moves all extremities, no focal motor deficits, no sensory deficits noted and deep tendon reflexes 2+ bilaterally Sensorium / Orientation: awake, alert, oriented to person, oriented to place and oriented to time Coordination / Balance: [id number] test normal Speech: speech normal Motor Exam: strength 5/5 throughout and general weakness Psych thought process normal, cooperative and affect normal Appearance: appropriate Assessment & Plan Assessment/Plan (1) GI (gastrointestinal bleed): QUALIFIERS: GI bleed type/associated pathology: melena Qualified Code(s): K92.1 - Melena (2) Atrial flutter: QUALIFIERS: Atrial flutter type: typical Qualified Code(s): I48.3 - Typical atrial flutter PLAN: Plan #GI bleed * Admitted with a complaint of dark stools. He also had bloody stools this morning. * On IV Protonix. * Gastroenterology on board. Nuclear bleeding scan done is negative for any evidence of GI bleed. * INR is 1.3. * Hb is 10 today * EGD showed normal esophagus with erythematous mucosa in the gastric fundus, with a nonbleeding duodenal ulcer with pigmented material which was injected and treated with a heater probe, and proof of possible ischemic duodenitis wit h ulceration. * #Atrial flutter with RVR * now off cardizem drip. RVR has resolved * cardiology on board. * now on PO cardizem. * Eliquis on hold. 2D echo done showed EF of 65% with no regional wall motion abnormalities and moderate aortic stenosis, with normal LVSF. Per GI, ok to resume eliquis * #Elevated TSH: TSH is 4.16. Was 1.91 just yesterday. Unclear why it was checked again. Will check free T4. #History of aortic stenosis: Stable #Benign essential hypertension:On PO cardizem #Hyperlipidemia: Resume statin. #Hypothyroidism: On Synthroid #Obesity: BMI is 32.3. Complicates acute care, expected recovery and prognosis. #BPH: On Flomax DVT prophylaxis: SCDs Charges/Coding Visit Charges Inpatient E&M: 58056 Subs Hosp L2
[2023-09-13 13:53] LABS: Absolute Lymphocyte Count 1.31 X10^3/uL (0.83-4.51); Absolute Neutrophil Count 3.8 X10^3/uL (2.0-7.7); Basophil# 0.03 X10^3/uL; Basophil% 0.5 % (0-1); Eosinophil# 0.09 X10^3/uL; Eosinophils% 1.4 % (0-5); Hematocrit 29.2 % (40-54); Hemoglobin 9.2 g/dL (13.0-16.5); Lymphocyte # 1.31 X10^3/ul (0.83-4.51); Mean Corp Hgb Conc 31.5 g/dL (32-36); Mean Corpuscular Hgb 28.3 pg (27.0-32.0); Mean Corpuscular Volume 89.8 fL (80-94); Mean Platelet Vol. 11.2 fl (6.2-12.0); Monocyte# 1.28 X10^3/uL; Monocyte% 19.6 % (0-10); NRBC Flagged by Analyzer 0 % (0-5); Neutrophil # 3.76 X10^3/uL (2.7-7.7); Neutrophil % 57.4 % (47-70); Platelet Count 173 K/mm3 (150-450); RBC Distribution Width CV 13.9 % (11.6-14.6); RBC Distribution Width SD 45.4 fl (35.1-43.9); Red Blood Count 3.25 M/mm3 (4.6-6.2); White Blood Count 6.5 K/mm3 (4.4-11.0)
[2023-09-13] MEDS: Pantoprazole Sodium 40 MG Tablet PO ×2 (15:13→21:25)
--- NOTE | 2023-09-13 15:56 | NURSING ---
report called to [facility] for transfer to room 108, transferred per wheelchair with belongings , present
[2023-09-13] MEDS: APIXABAN 5 MG TABLET PO (21:25)
[2023-09-14 04:00] VITALS: BP 100/68; PULSE 96; RESP 18; TEMP 36.8; O2SAT 98
[2023-09-14 04:44] VITALS: BMI 33.1
[2023-09-14] MEDS: Levothyroxine 50 MCG Tablet PO (06:55)
[2023-09-14] MEDS: Sucralfate 1 GM Tablet PO ×2 (06:55→11:10)
[2023-09-14 08:42] LABS: Absolute Lymphocyte Count 1.67 X10^3/uL (0.83-4.51); Absolute Neutrophil Count 3.4 X10^3/uL (2.0-7.7); Basophil# 0.03 X10^3/uL; Basophil% 0.4 % (0-1); Eosinophil# 0.15 X10^3/uL; Eosinophils% 2.2 % (0-5); Hemoglobin 9.5 g/dL (13.0-16.5); Lymphocyte # 1.67 X10^3/ul (0.83-4.51); Lymphocyte % 24.3 % (19-41); Mean Corp Hgb Conc 31.7 g/dL (32-36); Mean Corpuscular Hgb 27.7 pg (27.0-32.0); Mean Corpuscular Volume 87.5 fL (80-94); Monocyte# 1.58 X10^3/uL; NRBC Flagged by Analyzer 0 % (0-5); Neutrophil # 3.35 X10^3/uL (2.7-7.7); Neutrophil % 48.6 % (47-70); POSITIVE DIFFERENTIAL YES; Platelet Count 192 K/mm3 (150-450); RBC Distribution Width CV 13.9 % (11.6-14.6); Red Blood Count 3.43 M/mm3 (4.6-6.2); White Blood Count 6.9 K/mm3 (4.4-11.0)
[2023-09-14 08:46] VITALS: BP 113/68; PULSE 101; RESP 16; TEMP 36.4; O2SAT 97
[2023-09-14 08:50] VITALS: PULSE 101
[2023-09-14] MEDS: Pantoprazole Sodium 40 MG Tablet PO (08:50)
[2023-09-14] MEDS: Metoprolol Tartrate 50 MG Tablet PO (08:50)
[2023-09-14] MEDS: Finasteride 5 MG Tablet PO (08:51)
[2023-09-14] MEDS: APIXABAN 5 MG TABLET PO (08:51)
[2023-09-14] MEDS: Losartan Potassium 25 MG Tablet PO (08:52)
--- NOTE | 2023-09-14 11:44 | PCM.DC ---
Discharge Instructions Diet Discharge Diet: Low fat / Low cholesterol Activity Discharge Activity: Return to Normal Activity Weight Bearing Status: Weight bearing as tolerated Dressing / Incision Call your doctor if you observe: Fever of 101 or Higher, Shortness of breath, Dizziness, Swelling in the ankles and Chest pain Follow Up Care Test Results: Test results from this visit will be discussed in further detail at your follow-up appointment, if applicable. Discharge Plan Admission Admit Date/Time: 09/11/23 05:56 Primary Reason for Your Visit: GI bleed Attending Provider: Monica Gutierres Primary Care Provider: Kris Barone NP Consulting Providers: Obinna Bueno; Truong Brush Instructions Patient Instructions: GI Bleeding Causes and Tests, GI Bleeding Ch Discharge Orders/Prescriptions Prescriptions: New sucralfate 1 gram Tablet 1 g PO TIDAC Qty: 90 2RF pantoprazole 40 mg Tablet,Delayed Release (Dr/Ec) 40 mg PO BID Qty: 60 2RF hydrocortisone acetate [Anusol-HC] 25 mg suppository 25 mg IA BID Qty: 24 0RF Continued finasteride 5 mg tablet 5 mg PO DAILY glucosamine-chondroitin [Osteo Bi-Flex] 250-200 mg tablet 2 tab PO QPC levothyroxine 50 mcg tablet 50 mcg PO DAILY saw palmetto 450 mg capsule 450 mg PO BID Rx Instructions: give with food (meal/snack) Eliquis 5 mg tablet 5 mg PO BID Qty: 120 3RF metoprolol succinate 50 mg tablet extended release 24 hr 50 mg PO BID Qty: 180 3RF irbesartan 75 mg tablet 75 mg PO DAILY Qty: 90 3RF Referrals / Follow Up: Truong Brush MD [Med Staff - Active Staff] - Within 2 Weeks Eliazar Cope DO [Med Staff - Active Staff] - Within 2 Weeks Kris Barone NP, [employer]ER[employer] SPECIALIST-C [Primary Care Provider] - Within 2 Weeks Disposition Disposition (needs filled in before D/C Order can be placed): Home, Self Care
--- NOTE | 2023-09-14 11:45 | DS.PCM_ITS ---
Providers Date of Admission: 09/11/23 Date of Discharge: 09/14/23 Primary Care Physician: Kris Barone, ANIMAL ATTENDANT-C Consultations 09/11/23 06:19 Consult: Cardiology Routine Consulting Provider: Truong Brush Reason for Consult: PAF with RVR, Chest Pain and Palpitations with upward trending troponins. EMERGENT Consult: No Notified: Yes Date Notified: 09/11/23 Time Notified: 07:30 Method of Notification: Text Method of Consult:: In-Person Consult: Gastroenterology Routine Consulting Provider: [facility] Reason for Consult: Hemoccult positive stools and patient on chronic anticoagulation EMERGENT Consult: No MD Notified: Yes Date Notified: 09/11/23 Time Notified: 05:14 Method of Notification: Text Reason For Visit: BLACK STOOLS,CHEST PAIN,PALPITATIONS & DIAPHORESIS Diagnosis Discharge Diagnosis (1) GI (gastrointestinal bleed): Status: Acute Code(s): K92.2 - Gastrointestinal hemorrhage, unspecified Qualifiers: GI bleed type/associated pathology: melena Qualified Code(s): K92.1 - Melena (2) Atrial flutter: Status: Chronic Code(s): I48.92 - Unspecified atrial flutter Qualifiers: Atrial flutter type: typical Qualified Code(s): I48.3 - Typical atrial flutter Plan #GI bleed * Admitted with a complaint of dark stools. He also had bloody stools this morning. * On IV Protonix. * Gastroenterology on board. Nuclear bleeding scan done is negative for any evidence of GI bleed. * INR is 1.3. * Hb is 10 today * EGD showed normal esophagus with erythematous mucosa in the gastric fundus, with a nonbleeding duodenal ulcer with pigmented material which was injected and treated with a heater probe, and proof of possible ischemic duodenitis with ulceration. * #Atrial flutter with RVR * now off cardizem drip. RVR has resolved * cardiology on board. * now on PO cardizem. * Eliquis on hold. 2D echo done showed EF of 65% with no regional wall motion abnormalities and moderate aortic stenosis, with normal LVSF. Per GI, ok to resume eliquis * #Elevated TSH: TSH is 4.16. Was 1.91 just yesterday. Unclear why it was checked again. Will check free T4. #History of aortic stenosis: Stable #Benign essential hypertension:On PO cardizem #Hyperlipidemia: Resume statin. #Hypothyroidism: On Synthroid #Obesity: BMI is 32.3. Complicates acute care, expected recovery and prognosis. #BPH: On Flomax DVT prophylaxis: SCDs Medications at Discharge Home Medications finasteride 5 mg tablet 5 mg PO DAILY 12/12/21 glucosamine-chondroitin 250 mg-200 mg tablet (Osteo Bi-Flex) 2 tab PO QPC 12/12/21 apixaban 5 mg tablet (Eliquis) 5 mg PO BID #120 tabs 11/06/22 levothyroxine 50 mcg tablet 50 mcg PO DAILY 11/06/22 saw palmetto 450 mg capsule 450 mg PO BID 11/06/22 irbesartan 75 mg tablet 75 mg PO DAILY #90 tabs 03/14/23 metoprolol succinate 50 mg tablet,extended release 24 hr 50 mg PO BID #180 tabs 04/28/23 hydrocortisone acetate 25 mg rectal suppository (Anusol-HC) 25 mg NV BID #24 ea 09/14/23 pantoprazole 40 mg tablet,delayed release 40 mg PO BID #60 tabs 09/14/23 sucralfate 1 gram tablet 1 g PO TIDAC #90 tabs 09/14/23 Hospital Course Operations None Procedures EGD Summary of Care Provided Minutes Spent on Discharge: 45 Hospital Course: Patient is a 78-year-old male with a past medical history as outlined was admitted through the ED on 09/11/2023 with a complaint of chest pain and palpitations. He also had an assisted dark black stool. Chest pain was pressu re-like and substernal and nonradiating with associated diaphoresis. He felt like he was having severe palpitations. He did have a known history of GI bleed. On admission he was found to be anemic and had melenic stools so he was diagnosed with acute GI bleed. He was also in recurrent atrial flutter with RVR and was therefore admitted to the ICU. Troponins were also slightly elevated. He was admitted and managed for acute upper GI bleed and atrial flutter with RVR. He was started on IV Cardizem drip. Cardiology was consulted and patient was eventually switched to p.o. metoprolol. He became rate controlled. Gastroenterology was also consulted and he did have EGD which showed a normal esophagus with a nonbleeding duodenal ulcer with pigmented material and possible ischemic duodenitis with ulceration. He was continued on the Protonix. He also complained of hemorrhoidal bleed so he was given a prescription for Anusol at time of discharge. Patient remained stable and was discharged home on 09/14/2023. His Eliquis was resumed before he was discharged and he did well on it without any evidence of bleeding. He is follow-up with his primary care doctor, gastroenterology and his PCP. Patient seen and examined prior to discharge. He had no complaints and had an uneventful night. Review of systems otherwise negative. Physical Exam Const alert, oriented x3, no apparent distress, average body habitus, no limitations, healthy appearing and well nourished General Appearance: cooperative, comfortable, well kempt and well developed HEENT normocephalic, head/scalp atraumatic, hearing grossly normal bilaterally, EAC's normal, moist oral mucous membranes and oropharynx normal Mouth: oral and palatal mucosa normal Eyes PERRL and EOMs intact bilaterally Neck no lymphadenopathy, supple and no JVD Lymph Lymphatic: no lymphadenopathy noted and no lymphedema noted Resp normal respiratory effort, normal air movement, no retractions, no use of accessory muscles and clear to auscultation bilaterally Cardio Cardio Narrative: atrial flutter, rate controlled GI normal to inspection, nondistended, normoactive bowel sounds, soft to palpation, non-tender and non-distended Extremity normal to inspection, full ROM, normal capillary refill, no clubbing, cyanosis or edema and no calf tenderness General Extremity: no tenderness to palpation of joints or extremities Skin General Skin Exam: no breakdown Neuro oriented x3, CN's II-XII intact bilaterally, moves all extremities, no focal motor deficits, no sensory deficits noted and deep tendon reflexes 2+ bilaterally Sensorium / Orientation: awake, alert, oriented to person, oriented to place and oriented to time Coordination / Balance: [id number] test normal Speech: speech normal Motor Exam: strength 5/5 throughout and general weakness Psych thought process normal, cooperative and affect normal Appearance: appropriate Weight / BMI Weight Weight: 244 lb 4.355 oz Body Mass Index (BMI) 33.1 ABG / Lab / Microbiology Data 09/14/23 08:24 09/12/23 04:20 Laboratory: Laboratory Results - last 24 hr 09/13/23 13:50: WBC 6.5, RBC 3.25 L, Hgb 9.2 L, Hct 29.2 L, MCV 89.8, MCH 28.3, MCHC 31.5 L, RDW Std Deviation 45.4 H, RDW Coeff of Sneha 13.9, Plt Count 173, MPV 11.2, Immature Gran % (Auto) 1.100 H, Neut % (Auto) 57.4, Lymph % (Auto) 20.0, Morgan % (Auto) 19.6 H, Eos % (Auto) 1.4, Baso % (Auto) 0.5, Absolute Neuts (auto) 3.8, Absolute Lymphs (auto) 1.31, Nucleated RBC % 0 09/14/23 08:24: WBC 6.9, RBC 3.43 L, Hgb 9.5 L, Hct 30.0 L, MCV 87.5, MCH 27.7, MCHC 31.7 L, RDW Std Deviation 44.0 H, RDW Coeff of Sneha 13.9, Plt Count 192, Imm ature Gran % (Auto) 1.500 H, Neut % (Auto) 48.6, Lymph % (Auto) 24.3, Morgan % (Auto) 23.0 H, Eos % (Auto) 2.2, Baso % (Auto) 0.4, Absolute Neuts (auto) 3.4, Absolute Lymphs (auto) 1.67, Nucleated RBC % 0 Microbiology: Microbiology 09/11/23 02:10 Stool Stool Occult Blood (SARAN) - Final Occult Blood Positive D/C Instructions Discharge Diet: Low fat / Low cholesterol Discharge Activity: Return to Normal Activity Weight Bearing Status: Weight bearing as tolerated Call your doctor if you observe: Fever of 101 or Higher, Shortness of breath, Dizziness, Swelling in the ankles and Chest pain Meaningful Use Info Meaningful Use Diagnoses (Choose all that apply): None applicable Discharge Plan Admission Admit Date/Time: 09/11/23 05:56 Primary Reason for Your Visit: GI bleed Attending Provider: Monica Gutierres Primary Care Provider: Kris Barone NP Consulting Providers: Obinna Bueno; Truong Brush Instructions Patient Instructions: GI Bleeding Causes and Tests, GI Bleeding Ch Discharge Orders/Prescriptions Prescriptions: New sucralfate 1 gram Tablet 1 g PO TIDAC Qty: 90 2RF pantoprazole 40 mg Tablet,Delayed Release (Dr/Ec) 40 mg PO BID Qty: 60 2RF hydrocortisone acetate [Anusol-HC] 25 mg suppository 25 mg NV BID Qty: 24 0RF Continued finasteride 5 mg tablet 5 mg PO DAILY glucosamine-chondroitin [Osteo Bi-Flex] 250-200 mg tablet 2 tab PO QPC levothyroxine 50 mcg tablet 50 mcg PO DAILY saw palmetto 450 mg capsule 450 mg PO BID Rx Instructions: give with food (meal/snack) Eliquis 5 mg tablet 5 mg PO BID Qty: 120 3RF metoprolol succinate 50 mg tablet extended release 24 hr 50 mg PO BID Qty: 180 3RF irbesartan 75 mg tablet 75 mg PO DAILY Qty: 90 3RF Referrals / Follow Up: Truong Brush MD [Med Staff - Active Staff] - Within 2 Weeks Eliazar Cope DO [Med Staff - Active Staff] - Within 2 Weeks Kris Barone ANIMAL ATTENDANT, ANIMAL ATTENDANT-C [Primary Care Provider] - Within 2 Weeks Disposition Disposition (needs filled in before D/C Order can be placed): Home, Self Care Charges/Coding Visit Charges Inpatient E&M: 43932 Disch Hosp >30min
[2023-09-16 13:52] LABS: Pathologist Review Reviewed
== END 2023-09-14 13:34 | disposition home or self-care (01) | DRG 378 ==
LOC: ED 09-11 04:27 → ICU 09-11 05:25 → PCU 09-13 15:59
PROVIDERS: Internal Medicine Gastroenterology; Admitting Provider Internal Medicine; Emergency Provider Emergency Medicine; PCP Nurse Practitioner Family; Visit Provider Student in an Organized Health Care Education/Training Program
PROC: 0DJ08ZZ Inspection of Upper Intestinal Tract, Via Natural or Artificial Opening Endoscopic (ICD-10-PCS; CPT 43235; principal; 2023-09-12 12:25)
DX: K92.1 Melena (principal); D62 Acute posthemorrhagic anemia; I48.3 Typical atrial flutter; E03.9 Hypothyroidism, unspecified; I10 Essential (primary) hypertension; I35.0 Nonrheumatic aortic (valve) stenosis; D50.9 Iron deficiency anemia, unspecified; G47.33 Obstructive sleep apnea (adult) (pediatric); M19.90 Unspecified osteoarthritis, unspecified site; E78.2 Mixed hyperlipidemia; K29.80 Duodenitis without bleeding; K26.9 Duodenal ulcer, unspecified as acute or chronic, without hemorrhage or perforation; E66.9 Obesity, unspecified; Z79.01 Long term (current) use of anticoagulants; Z87.891 Personal history of nicotine dependence; T50.905A Adverse effect of unspecified drugs, medicaments and biological substances, initial encounter; N40.0 Benign prostatic hyperplasia without lower urinary tract symptoms; Z68.33 Body mass index [BMI] 33.0-33.9, adult; Z99.89 Dependence on other enabling machines and devices
CPT/HCPCS: 36415; 71045; 71275; 74174; 78278; 80048; 80053; 82274; 83735; 84100; 84443; 84484; 85025; 85610; 85730; 86850; 86900; 86901; 93005; 93306; 94668; 99284; A9560; J7030; J7040; Q9957; Q9967; A4216; C8929; J2405; J3490

== ENCOUNTER → 2023-10-03 | Outpatient (CLI) | payer MEDICARE, OTHER, SELFPAY ==
[2023-10-03 08:40] LABS: Absolute Lymphocyte Count 1.33 X10^3/uL (0.83-4.51); Absolute Neutrophil Count 2.4 X10^3/uL (2.0-7.7); Basophil# 0.03 X10^3/uL; Basophil% 0.5 % (0-1); Eosinophil# 0.14 X10^3/uL; Eosinophils% 2.6 % (0-5); Hematocrit 37.6 % (40-54); Hemoglobin 11.7 g/dL (13.0-16.5); Lymphocyte # 1.33 X10^3/ul (0.83-4.51); Lymphocyte % 24.3 % (19-41); Mean Corp Hgb Conc 31.1 g/dL (32-36); Mean Corpuscular Hgb 27.7 pg (27.0-32.0); Mean Corpuscular Volume 89.1 fL (80-94); Mean Platelet Vol. 11.3 fl (6.2-12.0); Monocyte# 1.52 X10^3/uL; Monocyte% 27.8 % (0-10); NRBC Flagged by Analyzer 0 % (0-5); Neutrophil # 2.42 X10^3/uL (2.7-7.7); Neutrophil % 44.3 % (47-70); POSITIVE DIFFERENTIAL YES; Platelet Count 179 K/mm3 (150-450); RBC Distribution Width CV 14.6 % (11.6-14.6); RBC Distribution Width SD 47.1 fl (35.1-43.9); RET-HE 28.7 pg (30-35); Red Blood Count 4.22 M/mm3 (4.6-6.2); Reticulocyte Count 2.13 % (0.5-1.5); White Blood Count 5.5 K/mm3 (4.4-11.0)
[2023-10-03 08:42] LABS: Differential Indicated SCAN CRITERIA MET
[2023-10-03 08:58] LABS: BNP,B-Type NATRIURETIC PEPTIDE 20.6 pg/mL (0-100)
[2023-10-03 09:02] LABS: Anion Gap 3 (5-15); BUN 23 mg/dL (7-18); BUN/Creat Ratio 16.8 RATIO (10-20); Calcium,Total 9.1 mg/dL (8.5-10.1); Chloride 109 mmol/L (98-107); Creatinine, Serum 1.37 mg/dL (0.70-1.30); EST Glomerular Filtration Rate 54 mL/min (>60); Est Glom Filt Rate - Afr Amer 65 mL/min (>60); Ferritin 38 ng/mL (26-388); Glucose 107 mg/dL (74-106); Iron 46 ug/dL (65-175); Iron Binding Capacity,Total 333 ug/dL (250-450); LDH 147 U/L (87-241); Potassium 4.5 mmol/L (3.5-5.1); Sodium Level 139 mmol/L (136-145)
[2023-10-06 13:07] LABS: Albumin 3.9 g/dL (2.9-4.4); Alpha-1-Globulins 0.2 g/dL (0.0-0.4); Alpha-2-Globulins 0.6 g/dL (0.4-1.0); Endomysial Antibody IgA Negative (Negative); Gamma Globulin 1.1 g/dL (0.4-1.8); Haptoglobin 170 mg/dL (34-355); Immunoglobulin A 465 mg/dL (61-437); Immunoglobulin G 1279 mg/dL (603-1613); Immunoglobulin M 75 mg/dL (15-143); PROEL- TOTAL PROTEIN 7.1 g/dL (6.0-8.5); t-Transglutaminase IgA <2 U/mL (0-3)
== END | disposition home or self-care (01) ==
LOC: PAVLAB 08:26
PROVIDERS: Nurse Practitioner Family; PCP Nurse Practitioner Family; Referring Provider Internal Medicine Gastroenterology; Visit Provider Internal Medicine Gastroenterology
DX: D64.9 Anemia, unspecified (principal); I48.92 Unspecified atrial flutter; R06.00 Dyspnea, unspecified; I35.0 Nonrheumatic aortic (valve) stenosis; E78.5 Hyperlipidemia, unspecified; I10 Essential (primary) hypertension
CPT/HCPCS: 36415; 80048; 82728; 82784; 83010; 83516; 83540; 83550; 83615; 83880; 84165; 85025; 85045; 86255; 86334

== ENCOUNTER → 2024-09-20 | Outpatient (CLI) | payer MEDICARE, OTHER, SELFPAY ==
--- NOTE | 2024-09-20 13:38 | ECHOCS_ITS ---
Reason For Study Reason For Study: AORTIC STENOSIS Procedure This was a 2D Doppler, Color Flow transthoracic echocardiogram. The study was technically difficult. Contrast injection was performed. Exam performed in department. Left Ventricle Normal LV size. Mild concentric left ventricular hypertrophy. Left ventricular systolic function is normal. The left ventricular ejection fraction is 65 %. No regional wall motion abnormalities noted. Right Ventricle Normal RV size. Normal systolic function. Atria Normal left atrium. Normal right atrium. Mitral Valve There is mild to moderate mitral annular calcification. Tricuspid Valve Normal tricuspid valve. Aortic Valve Trisinus/trileaflet aortic valve. Severe diffuse aortic valve thickening. Peak aortic valve gradient 44 mmHg. Mean aortic valve gradient 27 mmHg. Moderate aortic stenosis. Pulmonic Valve Normal pulmonic valve. Great Vessels Normal aortic root. Pericardium/Pleural No pericardial effusion. Medication 22 gauge I.V. with prn adaptor inserted into left arm. Diluted definity 1ml given slow IV push to enhance endocardial definition. MMode/2D Measurements & Calculations LVIDd: 4.4 cm IVSd: 1.4 cm LVOT diam: 2.0 cm LVIDs: 3.2 cm LVPWd: 1.3 cm FS: 27.7 % LVOT area: 3.3 cm2 Ao root diam: 3.6 cm LAV(MOD-bp): 43.7 ml LVAd ap4: 27.4 cm2 LAV(MOD-bp) Indexed: 19.3 ml/m2 LVLd ap4: 8.5 cm LAV(MOD-sp2): 56.0 ml EDV(MOD-sp4): 74.8 ml LAV(MOD-sp4): 28.8 ml EDV(sp4-el): 75.4 ml LVAs ap4: 19.8 cm2 LVLs ap4: 7.7 cm ESV(MOD-sp4): 43.9 ml ESV(sp4-el): 43.1 ml EF(MOD-sp4): 41.4 % EF(sp4-el): 42.9 % SV(MOD-sp4): 31.0 ml SV(sp4-el): 32.3 ml LA A4 area: 12.9 cm2 SI(MOD-sp4): 13.7 ml/m2 LA dimension(2D): 5.0 cm RA A4 area: 12.1 cm2 Doppler Measurements & Calculations Ao V2 max: 332.8 cm/sec PA V2 max: 104.2 cm/sec Ao max P.4 mmHg PA V2 mean: 61.1 cm/sec Ao V2 mean: 240.4 cm/sec Ao mean P.9 mmHg Ao V2 VTI: 65.2 cm ECHO/Echo Complete W/ Contrast Interpretation Summary Normal LV size. Left ventricular systolic function is normal. The left ventricular ejection fraction is 65 %. Severe diffuse aortic valve thickening. Mean aortic valve gradient 27 mmHg. Moderate aortic stenosis. Ordering Physician: Boubacar Vasquez Referring Physician: Boubacar Vasquez Performed By: Cass Church RCS
== END | disposition home or self-care (01) ==
LOC: CVS 13:38
PROVIDERS: PCP Nurse Practitioner Family; Referring Provider Nurse Practitioner Family; Visit Provider Nurse Practitioner Family
DX: I35.0 Nonrheumatic aortic (valve) stenosis (principal)
CPT/HCPCS: 93306; Q9957; A4216; C8929